=== PATIENT | male | born 1945 | race Caucasian/White ===

== ENCOUNTER 2019-04-24 21:26 | Inpatient (IN) | payer OTHER ==
[2019-04-24 22:49] LABS: BASO % 0.8 % (0-2.0); EOS % 0.3 % (0-4.5); HEMATOCRIT 37.3 % (35.4-49); HEMOGLOBIN 11.9 GM/dL (11.7-16.9); LYMPH % 9.8 % (8-40); MCH 26.4 pg (25.7-33.7); MCHC 31.9 g/dl (32.0-35.9); MEAN CELL VOLUME 82.7 fl (80-96); MEAN PLT VOLUME 9.5 fl (7.5-11.1); MONO % 9.1 % (3.8-10.2); PLATELET COUNT 205 K/MM3 (134-434); RBC 4.51 M/mm3 (4.00-5.60); RDW 14.1 % (11.9-15.9); WHITE BLOOD COUNT 11.4 K/mm3 (4.0-10.0)
--- NOTE | 2019-04-24 22:59 | PDOC ---
History of Present Illness - General Chief Complaint: Urinary Problem Stated Complaint: URINARY PROBLEM Time Seen by Provider: 04/24/19 22:14 - History of Present Illness Initial Comments: 04/24/19 22:55 73 yo M PMH UTIs, presenting with dysuria. Khmer speaking only. States that he has had dysuria, increased frequency, and incomplete voiding for the past week, as well as suprapubic abdominal pain. Went to [facility] 3 days ago and was discharged with cipro and ibuprofen 600mg, but states that his symptoms have not responded. Denies fevers/chills, DHALIWAL, N/V, CP, SOB, constipation/diarrhea. Endorses dysuria , frequency, incomplete voiding, and suprapubic abdominal pain. Past History - Past Medical History Allergies/Adverse Reactions: Allergies Allergy/AdvReac Type Severity Reaction Status Date / Time No Known Allergies Allergy Verified 04/24/19 21:59 COPD: No Other medical history: Pt denies - Psycho Social/Smoking Cessation Hx Smoking History: Never smoked Have you smoked in the past 12 months: No Information on smoking cessation initiated: No Hx Alcohol Use: No Drug/Substance Use Hx: No Review of Systems - Review of Systems Comments:: 04/24/19 22:57 GENERAL/CONSTITUTIONAL: No fever or chills. No weakness. HEAD, EYES, EARS, NOSE AND THROAT: No change in vision. No ear pain or discharge. No sore throat. CARDIOVASCULAR: No chest pain or shortness of breath. RESPIRATORY: No cough, wheezing, or hemoptysis. GASTROINTESTINAL: No nausea, vomiting, diarrhea or constipation. GENITOURINARY: Dysuria with frequency and incomplete voiding. MUSCULOSKELETAL: No joint or muscle swelling or pain. No neck or back pain. SKIN: No rash NEUROLOGIC: No headache, vertigo, loss of consciousness, or change in strength/ sensation. ENDOCRINE: No increased thirst. No abnormal weight change. HEMATOLOGIC/LYMPHATIC: No anemia, easy bleeding, or history of blood clots. ALLERGIC/IMMUNOLOGIC: No hives or skin allergy *Physical Exam - Vital Signs Last Vital Signs Temp Pulse Resp BP Pulse Ox 98.9 F 65 18 165/94 98 04/24/19 22:00 04/24/19 22:00 04/24/19 22:00 04/24/19 22:00 04/24/19 22:00 - Physical Exam 04/24/19 22:58 Gen: well-developed, well-nourished, NAD Neuro: AAOX4, CN II-XII intact, FTN intact, EOMI, PERRLA, 5/5 strength, SILT HEENT: atraumatic, normocephalic, dry mucous membranes Neck: trachea midline, supple CV: regular rate, regular rhythm, no murmurs, rubs, or gallops Pulm: CTA b/l, no wheezing Abd: soft, suprapubic fullness with ttp : uncircumcised penis, 1 mm aperture with significant phimosis and inability to retract foreskin MSK: full ROM, intact pulses Extr: no edema, no deformities Skin: warm, dry ED Treatment Course - LABORATORY CBC & Chemistry Diagram: 04/25/19 08:00 04/25/19 08:00 Medical Decision Making - Medical Decision Making 04/24/19 22:58 Concern for UTI, possible retention. - CBC, CMP - UA/UC - reassess 04/24/19 23:05 Bedside bladder scan with >1.2 L of urine post voiding. Will order Montgomery. 04/24/19 23:13 WBC 11.4. UA without UTI. 04/25/19 00:[address] Montgomery considering significantly small aperture and inability to retract foreskin. Will f/u urology drawer in stitch bonding machine recs. Possible admit to be seen by urology. 04/25/19 01:[address] Bonilla, asks that the patient be admitted and he will see the patient. Discharge - Discharge Information Problems reviewed: Yes Clinical Impression/Diagnosis: Urinary retention - Follow up/Referral - Patient Discharge Instructions - Post Discharge Activity
[2019-04-24 23:21] LABS: EPI CELLS 0.6 /HPF (0-5/HPF); HYALINE CASTS 4 /lpf (0-8); URINE APPEARANCE TURBID; URINE BACTERIA 0.2 /hpf (NEGATIVE); URINE BILIRUBIN NEGATIVE (NEGATIVE); URINE COLOR ORANGE; URINE GLUCOSE (UA) NEGATIVE (NEGATIVE); URINE KETONE NEGATIVE (NEGATIVE); URINE LEUK ESTERASE NEGATIVE (NEGATIVE); URINE NITRITE NEGATIVE (NEGATIVE); URINE PROTEIN TRACE (NEGATIVE); URINE UROBILINOGEN 0.2 mg/dL (0.2-1.0); URINE WBC 0 /hpf (0-5)
[2019-04-24 23:23] LABS: ALBUMIN 3.5 g/dl (3.4-5.0); BILIRUBIN,TOTAL 0.5 mg/dL (0.2-1); BLOOD UREA NITROGEN 19.8 mg/dL (7-18); CALCIUM 8.6 mg/dL (8.5-10.1); CREATININE 1.4 mg/dL (0.55-1.3); POTASSIUM 3.9 mmol/L (3.5-5.1); TOT PROT 7.8 g/dl (6.4-8.2)
[2019-04-24 23:40] LABS: URINE RBC 50-60 /hpf (0-4)
[2019-04-24 23:41] LABS: YEAST NONE SEEN (NEGATIVE)
--- NOTE | 2019-04-24 23:44 | PDOC ---
Documentation entered by Karsten Mcnair SCRIBE, acting as scribe for Micky Obrien MD. Micky Obrien MD: This documentation has been prepared by the Xu barahona Daniel, SCRIBE, under my direction and personally reviewed by me in its entirety. I confirm that the documentation accurately reflects all work, treatment, procedures, and medical decision making performed by me. Attending Attestation - Resident Resident Name: NoyolaHailemarya - ED Attending Attestation I have performed the following: I have examined & evaluated the patient, The case was reviewed & discussed with the resident, I agree w/resident's findings & plan, Exceptions are as noted - HPI HPI: 04/24/19 22:48 The patient is a 73 year old male with a past medical history of here today for evaluation of urinary retention. The patient reports that he went to [facility] 3 days ago and was prescribed ciprofloxacin. He states that his symptoms have continued since then and described them as burning with urination, urinary frequency, and urinary retention. Patient denies headache, lightheadedness. Denies fever, chills. Denies chest pain, shortness of breath. Denies nausea, vomiting, diarrhea, abdominal pain. Allergies: NKA - Physicial Exam PE: 04/24/19 23:44 Vitals: Triage Vital signs reviewed General Appearance: No acute distress, well nourished well developed, Head: Atraumatic, Cardiac: Regular rate and rhythym, no murmurs, no rubs, no gallops, Lungs: Clear to auscultation bilateral, good air movement bilaterally, Abdomen: Soft, distended suprapubic discomfort r Psych: Normal mood, normal affect - Medical Decision Making 04/24/19 23:44 73 years old with recent questionable UTI now with urinary retention suprapubic discomfort large postvoid residual Will check labs Montgomery catheter urinalysis observe and reassess. 04/25/19 01:41 Patient with very significant phimosis unable to pass catheter not in extremis will admit to hospitalist overnight urology has been consulted will see patient in the morning
--- NOTE | 2019-04-25 02:01 | PN ---
Teaching Attending Note Name of Resident: Brandyn Jesus ATTENDING PHYSICIAN STATEMENT I saw and evaluated the patient. I reviewed the resident's note and discussed the case with the resident. I agree with the resident's findings and plan as documented. SUBJECTIVE: Patient is 73 year old Greek speaking man with a PMH of UTIs, presenting with dysuria. States that he has had dysuria, increased frequency, and incomplete voiding for the past week, as well as suprapubic abdominal pain. Went to [facility] 3 days ago and was discharged with Cipro and Ibuprofen 600m g , but states that his symptoms have not responded. Denies fevers, chills, headache, nausea, vomiting, chest pain, CP, SOB, constipation or diarrhea. Has dysuria, frequency, incomplete voiding, and suprapubic abdominal pain. No recent travels. Denies alcohol, tobacco or illicit drug use. In the ER noted to have a post void residual of 1.2 liters. Also has uncircumcised penis with 1 mm aperture with significant phimosis and inability to retract foreskin and pass crain. Urology was consulted. OBJECTIVE: Alert Vital Signs Period Temp Pulse Resp BP Sys/Fniney Pulse Ox Last 24 Hr 98.9 F 65 18 165/94 98 HEENT: No Jaundice, eye redness or discharge, PERRLA, EOMI. Normocephalic, atraumatic. External ears are normal and hearing is grossly intact. No nasal discharge. Neck: Supple, nontender. No palpable adenopathy or thyromegaly. No JVD Chest: Good effort. Clear to auscultation and percussion. Heart: Regular. No S3, rub or murmur Abdomen: Distended suprapubic area with tenderness, soft, nontender and no HSM. No rebound or guarding. Normal bowel sounds. Ext: Peripheral pulses intact. No leg edema. Uncircumcised penis with significant phimosis. Skin: Warm and dry. No petechiae, rash or ecchymosis. Neuro: Alert. Oriented x3. CN 2-12 grossly intact. Sensation grossly intact in all four extremities and DTR are symmetric. Psych: Appropriate mood and affect. Good insight. Abnormal Lab Results 04/24/19 04/24/19 04/24/19 22:40 22:40 23:05 WBC 11.4 H MCHC 31.9 L Absolute Neuts (auto) 9.2 H Chloride 108 H BUN 19.8 H Creatinine 1.4 H Random Glucose 122 H Urine Blood 3+ H ASSESSMENT AND PLAN: 1. Urinary retention - Unable to pass crain. Urology consulted. Will strive to get records form [facility] during the day but will treat with IV Rocephin for UTI and give Flomax stat. Will apply topical steroid cream to the foreskin. Get HbAic. Will monitor BP closely since he may have undiagnosed hypertension. Will continue comprehensive care for all of patients comorbid conditions. 2. JAN - Likely partly due to urinary outlet obstruction. Will get kidney sonogram, CPK, PTH and phosphate levels. Consult nephrology and avoid nephrotoxic agents such as NSAIDS, aminoglycosides, contrast dyes and certain Alternative medicine products. 3. DVT prophylaxis - SCD since he may need a urologic procedure. 4. Advance directives - Full code
--- NOTE | 2019-04-25 03:57 | HP ---
CHIEF COMPLAINT: dysuria, urinary retention PCP: N/A HISTORY OF PRESENT ILLNESS: Patient is a 73 year old male who denies known medical history, presents with complaint of dysuria. States symptoms have been ongoing for the past week. He has noted increased urinary frequency, with difficulty passing urinary stream and sensation of incomplete voiding. He denies prior episodes of similar symptoms. Patient states he went to [facility] three days ago where he was reportedly sent home with Ciprofloxacin, and Ibuprofen which has not been palliative. Patient admits one episode of hematuria. Denies subjective fevers, chills, shortness of breath, chest pain, palpitations, abdominal pain, nausea, vomiting, diarrhea, constipation. ER course was notable for: (1) Bladder scan > 1200cc urine (2) (3) Recent Travel: denies PAST MEDICAL HISTORY: denies PAST SURGICAL HISTORY: lower extremity varicose vein surgery Social History: Patient from [facility]. Independent in activities daily living. Lives in apartment with sister. Smoking: Denies smoking cigarettes Alcohol: Denies alcohol consumption Drugs: Denies illicit drug use. Allergies No Known Allergies Allergy (Verified 04/24/19 21:59) HOME MEDICATIONS: REVIEW OF SYSTEMS CONSTITUTIONAL: Absent: fever, chills, diaphoresis, generalized weakness, malaise, loss of appetite, weight change HEENT: Absent: rhinorrhea, nasal congestion, throat pain, throat swelling, difficulty swallowing, mouth swelling, ear pain, eye pain, visual changes CARDIOVASCULAR: Absent: chest pain, syncope, palpitations, irregular heart rate, lightheadedness , peripheral edema RESPIRATORY: Absent: cough, shortness of breath, dyspnea with exertion, orthopnea, wheezing, stridor, hemoptysis GASTROINTESTINAL: Absent: abdominal pain, abdominal distension, nausea, vomiting, diarrhea, constipation, melena, hematochezia GENITOURINARY: Admits: dysuria, frequency, urgency, hesitancy, hematuria, genital pain MUSCULOSKELETAL: Absent: myalgia, arthralgia, joint swelling, back pain, neck pain SKIN: Absent: rash, itching, pallor HEMATOLOGIC/IMMUNOLOGIC: Absent: easy bleeding, easy bruising, lymphadenopathy, frequent infections ENDOCRINE: Absent: unexplained weight gain, unexplained weight loss, heat intolerance, cold intolerance NEUROLOGIC: Absent: headache, focal weakness or paresthesias, dizziness, unsteady gait, seizure, mental status changes, bladder or bowel incontinence PSYCHIATRIC: Absent: anxiety, depression, suicidal or homicidal ideation, hallucinations. PHYSICAL EXAMINATION Vital Signs - 24 hr 04/24/19 22:00 Temperature 98.9 F Pulse Rate 65 Respiratory 18 Rate Blood Pressure 165/94 O2 Sat by Pulse 98 Oximetry (%) GENERAL: Awake, alert, and fully oriented, in no acute distress. HEAD: Normal with no signs of trauma. EYES: Pupils equal, round and reactive to light, extraocular movements intact, sclera anicteric, conjunctiva clear. No lid lag. EARS, NOSE, THROAT: Ears normal, nares patent, oropharynx clear without exudates. Moist mucous membranes. NECK: Normal range of motion, supple without lymphadenopathy, JVD, or masses. LUNGS: Breath sounds equal, clear to auscultation bilaterally. No wheezes, and no crackles. No accessory muscle use. HEART: Regular rate and rhythm, normal S1 and S2 without murmur, rub or gallop. ABDOMEN: Soft, distended bladder palpable. Suprapubic tenderness to palpation. Normoactive bowel sounds, no guarding, no rebound tenderness. GENITOURINARY: Uncircumcised penis; unable to retract foreskin. Negative lesions , erythema noted. MUSCULOSKELETAL: Normal range of motion at all joints. No bony deformities or tenderness. Negative CVA tenderness. UPPER EXTREMITIES: 2+ pulses, warm, well-perfused. LOWER EXTREMITIES: 2+ pulses, warm, well-perfused. No calf tenderness. No peripheral edema. NEUROLOGICAL: Cranial nerves II-XII intact. Normal speech. Normal gait. PSYCHIATRIC: Cooperative. Good eye contact. Appropriate mood and affect. SKIN: Warm, dry, normal turgor, no rashes or lesions noted, normal capillary refill. Laboratory Results - last 24 hr 04/24/19 04/24/19 04/24/19 22:40 22:40 23:05 WBC 11.4 H RBC 4.51 Hgb 11.9 Hct 37.3 MCV 82.7 MCH 26.4 MCHC 31.9 L RDW 14.1 Plt Count 205 MPV 9.5 Absolute Neuts (auto) 9.2 H Neutrophils % 80.0 Lymphocytes % 9.8 Monocytes % 9.1 Eosinophils % 0.3 Basophils % 0.8 Nucleated RBC % 0 Sodium 141 Potassium 3.9 Chloride 108 H Carbon Dioxide 22 Anion Gap 11 BUN 19.8 H Creatinine 1.4 H Est GFR (CKD-EPI)AfAm 57.36 Est GFR (CKD-EPI)NonAf 49.49 Random Glucose 122 H Calcium 8.6 Total Bilirubin 0.5 AST 18 ALT 18 Alkaline Phosphatase 57 Total Protein 7.8 Albumin 3.5 Urine Color Jennings Urine Appearance Turbid Urine pH 5.0 Ur Specific Schuyler 1.011 Urine Protein Trace Urine Glucose (UA) Negative Urine Ketones Negative Urine Blood 3+ H Urine Nitrite Negative Urine Bilirubin Negative Urine Urobilinogen 0.2 Ur Leukocyte Esterase Negative Urine WBC (Auto) 0 Urine RBC (Auto) 50-60 Urine Casts (Auto) 4 U Epithel Cells (Auto) 0.6 Urine Bacteria (Auto) 0.2 Urine Yeast (Auto) None seen ASSESSMENT/PLAN: Patient is a 73 year old male who denies known medical history, presents with complaint of dysuria Urinary retention -Urinary retention likely secondary to phimosis. However, cannot exclude prostatic hyperplasia as obstructive etiology. -Flomax 0.8mg PO STAT -Will administer topical hydrocortisone cream 1% to foreskin to allow for skin loosening and potentially alleviate urinary retention. -ED staff were not able to place crain catheter. Urology consulted in ED (Dr. Lyons); will see patient in morning. Acute complicated UTI -Will initiate Ceftriaxone 1000mg IV daily. -Hold off on IV fluids as patient is experiencing difficulty passing urine, and retaining significant urine. -Follow urine cultures. -Will attempt to contact [place] to follow urine culture results from their encounter Acute kidney injury -Likely secondary to obstructive pathology. Follow CPK, phosphate, PTH. -Renal/ Bladder ultrasound to evaluate for hydronephrosis -Nephrology consult (Dr. Odell). -Follow BMP FEN -No IV fluids indicated -Follow BMP -Regular diet Prophylaxis -SCDs bilateral lower extremities. Holding chemical anticoagulation pending Urology evaluation Disposition -Admit to medical surgical floor. Visit type - Emergency Visit Emergency Visit: Yes ED Registration Date: 04/25/19 Care time: The patient presented to the Emergency Department on the above date and was hospitalized for further evaluation of their emergent condition. - New Patient This patient is new to me today: Yes Date on this admission: 04/25/19 - Critical Care Critical Care patient: No ATTENDING PHYSICIAN STATEMENT I saw and evaluated the patient. I reviewed the resident's note and discussed the case with the resident. I agree with the resident's findings and plan as documented. SUBJECTIVE: OBJECTIVE: ASSESSMENT AND PLAN:
[2019-04-25] MEDS ORDERED: TAMSULOSIN HCL 0.4 MG CAP PO ONE (04:10)
[2019-04-25] MEDS ORDERED: HYDROCORTISONE 1% TOPICAL OINT 30 GM TUBE TP ONE (04:20)
[2019-04-25] MEDS ORDERED: CEFTRIAXONE 1 GM/50 ML BAG ONE (04:47)
[2019-04-25] MEDS: CEFTRIAXONE 1 GM in DEXTROSE 5%-WATER - 50 ML IVPB SCH ×2 (04:59→09:37)
[2019-04-25] MEDS: ACETAMINOPHEN 325 MG TABLET (FP) PO PRN (06:03)
[2019-04-25 07:53] VITALS: BMI 27.3
[2019-04-25 09:12] LABS: HEMATOCRIT 36.9 % (35.4-49); HEMOGLOBIN 11.8 GM/dL (11.7-16.9); MCH 26.6 pg (25.7-33.7); MCHC 32.1 g/dl (32.0-35.9); MEAN CELL VOLUME 82.9 fl (80-96); MEAN PLT VOLUME 10.2 fl (7.5-11.1); PLATELET COUNT 203 K/MM3 (134-434); RBC 4.45 M/mm3 (4.00-5.60); WHITE BLOOD COUNT 11.1 K/mm3 (4.0-10.0)
[2019-04-25] MEDS ORDERED: DEXTROSE 5%-WATER - 50 ML IVPB ONE (09:33)
[2019-04-25] MEDS ORDERED: cefTRIAXone SODIUM 1 GM VIAL ONE (09:33)
[2019-04-25 09:35] LABS: INR 1.26 (0.83-1.09); PROTHROMBIN TIME (PATIENT) 14.9 SEC (9.7-13.0)
[2019-04-25 09:38] LABS: ACTIVATED PTT 29.7 SECONDS (25.2-36.5)
[2019-04-25 09:42] LABS: ALBUMIN 3.3 g/dl (3.4-5.0); BILIRUBIN,TOTAL 0.6 mg/dL (0.2-1); BLOOD UREA NITROGEN 16.6 mg/dL (7-18); CALCIUM 8.5 mg/dL (8.5-10.1); CREATININE 1.1 mg/dL (0.55-1.3); MAGNESIUM 2.4 mg/dL (1.8-2.4); PHOSPHOROUS 4.5 mg/dL (2.5-4.9); POTASSIUM 4.2 mmol/L (3.5-5.1); TOT PROT 7.7 g/dl (6.4-8.2)
[2019-04-25] MEDS ORDERED: FLU VACCINE QUAD 60 MCG/0.5 ML (MDV 19-20) IM ONE (10:00)
[2019-04-25] MEDS ORDERED: PNEUMOC 13-VAL CONJ-DIP CRM/PF 0.5 ML DISP.SYRIN IM ONE (10:00)
--- NOTE | 2019-04-25 11:16 | CONSULT ---
Consult - text type - Consultation Consultation Note: Renal consult for JAN Coverage for Dr. Odell This is a 73 year old gentleman with no significant medical history who presented from home with abdominal pain and found to have bladder outlet obstruction with JAN. s/p recent admission to [facility] for UTI. Denies any history of CKD or kidney stones. Denies any flank pain. No NSAID use. Montgomery inserted this am with 1.7L output. No N/v/d, cp, sob. PMhx: as above Allergies: NKDA Family Hx: NC social hx: No T/A/D ROS: as per HPI, all other pertinent ros negative Vital Signs Temperature 98.6 F 04/25/19 05:00 Pulse Rate 64 04/25/19 05:00 Respiratory Rate 18 04/25/19 05:00 Blood Pressure 161/69 04/25/19 05:00 O2 Sat by Pulse Oximetry (%) 99 04/25/19 05:00 Intake & Output 04/22/19 04/23/19 04/24/19 04/25/19 23:59 23:59 23:59 23:59 Intake Total 200 Balance 200 Weight 67.132 kg 67.903 kg NAD awake and alert neck supple RRR CTA soft NT/ND no bladder distension no LE edema CBC, BMP 04/25/19 08:00 04/25/19 08:00 Current Medications Acetaminophen (Tylenol -) 650 mg PO Q6H PRN PRN Reason: PAIN LEVEL 6-10 Last Admin: 04/25/19 06:03 Dose: 650 mg Ceftriaxone Sodium 1 gm/ (Dextrose) 50 mls @ 100 mls/hr IVPB DAILY [facility]; Protocol Last Admin: 04/25/19 09:37 Dose: 100 mls/hr Sodium Chloride (1/2 Normal Saline) 1,000 mls @ 100 mls/hr IV ASDIR AMBROCIO 73 year old gentleman with no significant medical history who presented from home with abdominal pain and found to have bladder outlet obstruction with JAN. 1. JAN secondary to bladder outlet obstruction 2. Hydronephrosis 3. Hypernatremia 4. Bladder mass 5. Recent UTI Renal function now improved to normal. Urology consult for bladder outlet obstruction and bladder mass seen on US Start hypotonic saline to prevent post obstructive diuresis induced volume depletion trend electrolytes and renal function daily Artem Kendall DO
--- NOTE | 2019-04-25 13:20 | CONS ---
DATE OF CONSULTATION: 04/25/2019 The patient is a 73-year-old [place] gentleman who presented to the emergency room with a distended bladder, difficulty voiding, and a history that he had been seen at [facility] 3 days earlier and placed on Cipro, without any resolution of his symptoms. The patient is speaking. History was obtained from a relative with the patient there. Patient reports some difficulty passing his urine but had never seen a urologist previously. Three days earlier, he presented to [facility] and complained of dribbling of urination, burning, unclear what imaging, if any, was done, but the patient was discharged on Cipro, which did not resolve the problem. The patient presented to the emergency room, where approximately 1100 mL was noted on bladder scan. Initially it was felt that a Montgomery could not be passed because of the patient's tight phimosis; however, Montgomery subsequently was passed and drained approximately 1200 mL of urine, according to the notes. Imaging has also showed that the patient may have a mass in the bladder. There is no history, however, of any gross hematuria. UA on admission did show red cells but this was obtained, it seems, from the passage of the catheter and is somewhat suspect in terms of its reliability, therefore. Current urologic exam that did reveal a tight phimosis. A Montgomery was in place draining slightly turbid yellow urine. Rectal exam is significant for the presence of an enlarged, irregular prostate, nodular, and suspicious for prostatic carcinoma. In summary, what we have is a 73-year-old, without prior history, and no other reported medical problems, presenting with urinary retention and an exam suggesting both a bladder mass as well as possibly prostatic carcinoma. The patient will need to have cystoscopy performed. At the time, if done with anesthesia, he should have a circumcision. In addition, I would place the patient on tamsulosin. I am not really sure exactly why it was discontinued, but he should be maintained on tamsulosin with the thought that he could have a trial of voiding in 3 days or 4 days, and if he is unable to void at the time that the cystoscopy is done, he possibly could also undergo a TURP. MD CHANCE BOWEN/[id number]
--- NOTE | 2019-04-25 16:59 | EKG ---
Test Reason : Blood Pressure : / mmHG Vent. Rate : 065 BPM Atrial Rate : 065 BPM P-R Int : 188 ms QRS Dur : 094 ms QT Int : 386 ms P-R-T Axes : 052 043 035 degrees QTc Int : 401 ms SINUS RHYTHM WITH OCCASIONAL PREMATURE VENTRICULAR COMPLEXES OTHERWISE NORMAL ECG NO PREVIOUS ECGS AVAILABLE Confirmed by ELIO CHAVEZ MD ([id number]) on 04/25/2019 4:58:45 PM Referred By: Confirmed By:ELIO CAHVEZ MD
--- NOTE | 2019-04-25 19:26 | PN ---
Physical Exam: 73 Turkmen speaking M h/o recurrent UTIs, presenting with dysuria and lower abdominal pain. Admitted for complicated UTI secondary to acute urinary retention 2/2 BPH and ?bladder mass. On examination patient complaining of writhing pain in lower abdomen, with a distended bladder and urinary retention. On my assessment, patient required urinary drainage so 16Fr crain catheter placed for presumed urinary retention. At approximately 9:45AM on 04/25/2019 patient was draped and prepped with sterile technique. 16Fr/10ml crain catheter inserted x1 attempt, return of 1700mL clear, yellow urine flowing, connected to crain bag to gravity, pt states discomfort with initial insertion, but denies any pain/discomfort at this time. EBL: 0cc. Patient tolerated procedure well. HEENT: No Jaundice, eye redness or discharge, PERRLA, EOMI. Normocephalic, atraumatic. External ears are normal and hearing is grossly intact. No nasal discharge. Neck: Supple, nontender. No palpable adenopathy or thyromegaly. No JVD Chest: Good effort. Clear to auscultation and percussion. Heart: Regular. No S3, rub or murmur Abdomen: Distended suprapubic area with tenderness, soft, non-tender and no HSM. No rebound or guarding. Normal bowel sounds. Ext: Peripheral pulses intact. No leg edema. Uncircumcised penis with significant phimosis and small opening. Skin: Warm and dry. No petechiae, rash or ecchymosis. Neuro: Alert. Oriented x3. CN 2-12 grossly intact. Sensation grossly intact in all four extremities and DTR are symmetric. Psych: Appropriate mood and affect. Good insight. Vital Signs - 24 hr 04/24/19 04/25/19 04/25/19 22:00 02:15 05:00 Temperature 98.9 F 98.6 F Pulse Rate 65 64 Pulse Rate [ 70 Left Radial] Respiratory 18 18 18 Rate Blood Pressure 165/94 161/69 Blood Pressure 159/86 [Left Arm] O2 Sat by Pulse 98 98 99 Oximetry (%) 04/25/19 04/25/19 04/25/19 09:00 09:52 15:00 Temperature 98.3 F 98.3 F Pulse Rate 58 L 72 Pulse Rate [ Left Radial] Respiratory 18 18 18 Rate Blood Pressure 155/69 132/73 Blood Pressure [Left Arm] O2 Sat by Pulse 99 Oximetry (%) 04/25/19 18:22 Temperature 99.1 F Pulse Rate 67 Pulse Rate [ Left Radial] Respiratory 19 Rate Blood Pressure 123/71 Blood Pressure [Left Arm] O2 Sat by Pulse Oximetry (%) Laboratory Results - last 24 hr 04/24/19 04/24/19 04/24/19 22:40 22:40 23:05 WBC 11.4 H RBC 4.51 Hgb 11.9 Hct 37.3 MCV 82.7 MCH 26.4 MCHC 31.9 L RDW 14.1 Plt Count 205 MPV 9.5 Absolute Neuts (auto) 9.2 H Neutrophils % 80.0 Lymphocytes % 9.8 Monocytes % 9.1 Eosinophils % 0.3 Basophils % 0.8 Nucleated RBC % 0 PT with INR INR PTT (Actin FS) Sodium 141 Potassium 3.9 Chloride 108 H Carbon Dioxide 22 Anion Gap 11 BUN 19.8 H Creatinine 1.4 H Est GFR (CKD-EPI)AfAm 57.36 Est GFR (CKD-EPI)NonAf 49.49 Random Glucose 122 H Hemoglobin A1c % Calcium 8.6 Phosphorus Magnesium Total Bilirubin 0.5 AST 18 ALT 18 Alkaline Phosphatase 57 Creatine Kinase Total Protein 7.8 Albumin 3.5 Urine Color [place] Urine Appearance Turbid Urine pH 5.0 Ur Specific [place] 1.011 Urine Protein Trace Urine Glucose (UA) Negative Urine Ketones Negative Urine Blood 3+ H Urine Nitrite Negative Urine Bilirubin Negative Urine Urobilinogen 0.2 Ur Leukocyte Esterase Negative Urine WBC (Auto) 0 Urine RBC (Auto) 50-60 Urine Casts (Auto) 4 U Epithel Cells (Auto) 0.6 Urine Bacteria (Auto) 0.2 Urine Yeast (Auto) None seen Blood Type Antibody Screen 04/25/19 04/25/19 04/25/19 08:00 08:00 08:00 WBC 11.1 H RBC 4.45 Hgb 11.8 Hct 36.9 MCV 82.9 MCH 26.6 MCHC 32.1 RDW 14.0 Plt Count 203 MPV 10.2 Absolute Neuts (auto) Neutrophils % Lymphocytes % Monocytes % Eosinophils % Basophils % Nucleated RBC % PT with INR 14.90 H INR 1.26 H PTT (Actin FS) 29.7 Sodium 148 H Potassium 4.2 Chloride 113 H Carbon Dioxide 26 Anion Gap 9 BUN 16.6 Creatinine 1.1 Est GFR (CKD-EPI)AfAm 76.78 Est GFR (CKD-EPI)NonAf 66.24 Random Glucose 105 Hemoglobin A1c % Calcium 8.5 Phosphorus 4.5 Magnesium 2.4 Total Bilirubin 0.6 AST 14 L ALT 17 Alkaline Phosphatase 54 Creatine Kinase Total Protein 7.7 Albumin 3.3 L Urine Color Urine Appearance Urine pH Ur Specific [place] Urine Protein Urine Glucose (UA) Urine Ketones Urine Blood Urine Nitrite Urine Bilirubin Urine Urobilinogen Ur Leukocyte Esterase Urine WBC (Auto) Urine RBC (Auto) Urine Casts (Auto) U Epithel Cells (Auto) Urine Bacteria (Auto) Urine Yeast (Auto) Blood Type Antibody Screen 04/25/19 04/25/19 04/25/19 08:00 08:00 08:00 WBC RBC Hgb Hct MCV MCH MCHC RDW Plt Count MPV Absolute Neuts (auto) Neutrophils % Lymphocytes % Monocytes % Eosinophils % Basophils % Nucleated RBC % PT with INR INR PTT (Actin FS) Sodium Potassium Chloride Carbon Dioxide Anion Gap BUN Creatinine Est GFR (CKD-EPI)AfAm Est GFR (CKD-EPI)NonAf Random Glucose Hemoglobin A1c % 5.6 Calcium Phosphorus Magnesium Total Bilirubin AST ALT Alkaline Phosphatase Creatine Kinase 45 Total Protein Albumin Urine Color Urine Appearance Urine pH Ur Specific [place] Urine Protein Urine Glucose (UA) Urine Ketones Urine Blood Urine Nitrite Urine Bilirubin Urine Urobilinogen Ur Leukocyte Esterase Urine WBC (Auto) Urine RBC (Auto) Urine Casts (Auto) U Epithel Cells (Auto) Urine Bacteria (Auto) Urine Yeast (Auto) Blood Type O POSITIVE Antibody Screen Negative 04/25/19 11:40 WBC RBC Hgb Hct MCV MCH MCHC RDW Plt Count MPV Absolute Neuts (auto) Neutrophils % Lymphocytes % Monocytes % Eosinophils % Basophils % Nucleated RBC % PT with INR INR PTT (Actin FS) Sodium Potassium Chloride Carbon Dioxide Anion Gap BUN Creatinine Est GFR (CKD-EPI)AfAm Est GFR (CKD-EPI)NonAf Random Glucose Hemoglobin A1c % Calcium Phosphorus Magnesium Total Bilirubin AST ALT Alkaline Phosphatase Creatine Kinase Total Protein Albumin Urine Color Urine Appearance Urine pH Ur Specific [place] Urine Protein Urine Glucose (UA) Urine Ketones Urine Blood Urine Nitrite Urine Bilirubin Urine Urobilinogen Ur Leukocyte Esterase Urine WBC (Auto) Urine RBC (Auto) Urine Casts (Auto) U Epithel Cells (Auto) Urine Bacteria (Auto) Urine Yeast (Auto) Blood Type O POSITIVE Antibody Screen Current Medications Generic Name Dose Route Start Last Admin Trade Name Freq PRN Reason Stop Dose Admin Acetaminophen 650 mg 04/25/19 05:45 04/25/19 06:03 Tylenol - PO 650 mg Q6H PRN Administration PAIN LEVEL 6-10 Enoxaparin Sodium 40 mg 04/25/19 19:30 Lovenox - SQ DAILY ON LICENSE OF [facility] Ceftriaxone Sodium 1 gm/ 50 mls @ 100 mls/hr 04/25/19 04:15 04/25/19 09:37 Dextrose IVPB 100 mls/hr DAILY [facility] Administration Protocol Sodium Chloride 1,000 mls @ 100 mls/hr 04/25/19 11:15 1/2 Normal Saline IV ASDIR [facility] Tamsulosin HCl 0.4 mg 04/25/19 20:30 Flomax - PO Q12H [facility] A/P: 73 M no significant PMHx, presents with complicated UTI 2/2 BPH and acute urinary retention. Patient underwent renal/bladder sono which revealed ?bladder mass. Crain placed which drained 1700mL of urine. Complicated UTI Cont. Ceftriaxone 1gm daily, IVF, follow urine cx Flomax 0.4mg BID (for 24hour coverage), crain to gravity maintenance Tylenol PRN for pain and fever Urology consult: Dr. Bonilla BPH w/ LUTS Cont. Flomax 0.4mg BID Crain to gravity for acute urinary retention Urology consult: Dr. Bonilla Bladder mass on imaging No remote history of smoking or risk factors Monitor CBC and urine output Urology consult: Dr. Bonilla DVT ppx: Lovenox SC FEN: IVF, chem daily, regular diet Visit type - Emergency Visit Emergency Visit: Yes ED Registration Date: 04/25/19 Care time: The patient presented to the Emergency Department on the above date and was hospitalized for further evaluation of their emergent condition. - New Patient This patient is new to me today: Yes Date on this admission: 04/25/19 - Critical Care Critical Care patient: No - Discharge Referral Referred to [facility] Med P.C.: No
[2019-04-25] MEDS: SODIUM CHLORIDE 0.45% 1,000 ML IV SCH (20:23)
[2019-04-25] MEDS: ENOXAPARIN NA (PORCINE) 40 MG/0.4 ML DISP.SYRIN SQ SCH (20:24)
[2019-04-25] MEDS: TAMSULOSIN HCL 0.4 MG CAP PO SCH (20:24)
[2019-04-25] MEDS ORDERED: POLYETHYLENE GLYCOL 3350 119 GM BTL PO ONE (22:24)
[2019-04-26 07:26] LABS: BASO % 0.6 % (0-2.0); EOS % 1.6 % (0-4.5); HEMATOCRIT 34.5 % (35.4-49); HEMOGLOBIN 11.2 GM/dL (11.7-16.9); LYMPH % 26.6 % (8-40); MCH 26.7 pg (25.7-33.7); MCHC 32.3 g/dl (32.0-35.9); MEAN CELL VOLUME 82.4 fl (80-96); MEAN PLT VOLUME 9.6 fl (7.5-11.1); MONO % 10.5 % (3.8-10.2); NEUT % 60.7 % (42.8-82.8); PLATELET COUNT 189 K/MM3 (134-434); RBC 4.18 M/mm3 (4.00-5.60); RDW 14.2 % (11.9-15.9); WHITE BLOOD COUNT 8.9 K/mm3 (4.0-10.0)
[2019-04-26 07:56] LABS: ALBUMIN 2.8 g/dl (3.4-5.0); BILIRUBIN,TOTAL 0.8 mg/dL (0.2-1); BLOOD UREA NITROGEN 13.3 mg/dL (7-18); CALCIUM 8.1 mg/dL (8.5-10.1); CREATININE 0.9 mg/dL (0.55-1.3); MAGNESIUM 2.3 mg/dL (1.8-2.4); PHOSPHOROUS 3.8 mg/dL (2.5-4.9); POTASSIUM 3.5 mmol/L (3.5-5.1); TOT PROT 6.6 g/dl (6.4-8.2)
[2019-04-26] MEDS ORDERED: TAMSULOSIN HCL 0.4 MG CAP PO SCH (08:30)
[2019-04-26] MEDS ORDERED: DEXTROSE 5%-WATER - 50 ML IVPB ONE (10:21)
[2019-04-26] MEDS ORDERED: cefTRIAXone SODIUM 1 GM VIAL ONE (10:21)
[2019-04-26] MEDS: ENOXAPARIN NA (PORCINE) 40 MG/0.4 ML DISP.SYRIN SQ SCH (10:58)
[2019-04-26] MEDS: TAMSULOSIN HCL 0.4 MG CAP PO SCH ×2 (10:58→21:17)
[2019-04-26] MEDS: SODIUM CHLORIDE 0.45% 1,000 ML IV SCH ×2 (11:36→21:17)
[2019-04-26] MEDS: CEFTRIAXONE 1 GM in DEXTROSE 5%-WATER - 50 ML IVPB SCH (11:36)
--- NOTE | 2019-04-26 12:57 | PN ---
Progress Note, Physician History of Present Illness: Pt seen and examined at bedside. He is awake and alert. He has a crain in place and it is draining. - Current Medication List Current Medications: Active Medications Acetaminophen (Tylenol -) 650 mg PO Q6H PRN PRN Reason: PAIN LEVEL 6-10 Last Admin: 04/25/19 06:03 Dose: 650 mg Enoxaparin Sodium (Lovenox -) 40 mg SQ DAILY [facility] Last Admin: 04/26/19 10:58 Dose: 40 mg Ceftriaxone Sodium 1 gm/ (Dextrose) 50 mls @ 100 mls/hr IVPB DAILY [facility]; Protocol Last Admin: 04/26/19 11:36 Dose: 100 mls/hr Sodium Chloride (1/2 Normal Saline) 1,000 mls @ 100 mls/hr IV ASDIR [facility] Last Admin: 04/26/19 11:36 Dose: 100 mls/hr Tamsulosin HCl (Flomax -) 0.4 mg PO Q12H [facility] Last Admin: 04/26/19 10:58 Dose: 0.4 mg - Objective Vital Signs: Vital Signs Temperature 99.1 F 04/26/19 06:00 Pulse Rate 60 04/26/19 06:00 Respiratory Rate 18 04/26/19 06:00 Blood Pressure 144/80 04/26/19 06:00 O2 Sat by Pulse Oximetry (%) 99 04/25/19 21:00 Constitutional: Yes: Calm Eyes: Yes: Conjunctiva Clear HENT: Yes: Atraumatic Neck: Yes: Supple Cardiovascular: Yes: S1, S2 Respiratory: Yes: CTA Bilaterally Gastrointestinal: Yes: Soft Genitourinary: Yes: Crain Present Musculoskeletal: Yes: WNL Edema: No Neurological: Yes: Oriented Psychiatric: Yes: Oriented Labs: CBC, BMP 04/26/19 06:55 04/26/19 06:55 INR, PTT INR 1.26 (0.83-1.09) H 04/25/19 08:00 Assessment/Plan Current Medications Generic Name Dose Route Start Last Admin Trade Name Freq PRN Reason Stop Dose Admin Acetaminophen 650 mg 04/25/19 05:45 04/25/19 06:03 Tylenol - PO 650 mg Q6H PRN Administration PAIN LEVEL 6-10 Enoxaparin Sodium 40 mg 04/25/19 19:30 04/26/19 10:58 Lovenox - SQ 40 mg DAILY [facility] Administration Ceftriaxone Sodium 1 gm/ 50 mls @ 100 mls/hr 04/25/19 04:15 04/26/19 11:36 Dextrose IVPB 100 mls/hr DAILY [facility] Administration Protocol Sodium Chloride 1,000 mls @ 100 mls/hr 04/25/19 11:15 04/26/19 11:36 1/2 Normal Saline IV 100 mls/hr ASDIR [facility] Administration Tamsulosin HCl 0.4 mg 04/25/19 20:30 04/26/19 10:58 Flomax - PO 0.4 mg Q12H [facility] Administration 1. JAN secondary to bladder outlet obstruction 2. Hydronephrosis 3. Hypernatremia 4. Bladder mass 5. Recent UTI Plan - can decrease rate of fluids - repeat labs stella - give dose of potassium - urology eval
[2019-04-26] MEDS ORDERED: POTASSIUM CHLORIDE TABS 20 MEQ TABLET.ER (FP) PO ONE (13:30)
[2019-04-26] MEDS: POLYETHYLENE GLYCOL 3350 119 GM BTL PO SCH (15:06)
--- NOTE | 2019-04-26 15:08 | PN ---
Progress Note (short form) - Note Progress Note: Hospitalist Medicine Resting in bed. No complaint. No dysuria. +crain d/w uro, for TOV on 04/28 and will need to call w/ result Vitals 04/26/19 06:00 Temperature 99.1 F Pulse Rate 60 Respiratory 18 Rate Blood Pressure 144/80 Physical Exam general: resting in bed, in NAD heent: NCAT, PERRLA neck: supple cardio: S1, S2 RRR. no r/m/g pulm: CTA B/l. 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 +crain Laboratory Tests 04/24/19 04/25/19 04/26/19 23:05 08:00 06:55 WBC RBC Hgb Hct Plt Count Sodium 139 Potassium 3.5 Chloride 107 Carbon Dioxide 29 Anion Gap 4 L BUN 13.3 Creatinine 0.9 Est GFR (CKD-EPI)AfAm 97.86 Est GFR (CKD-EPI)NonAf 84.43 Random Glucose 88 Calcium 8.1 L Phosphorus 3.8 Magnesium 2.3 Total Bilirubin 0.8 AST 15 ALT 16 Alkaline Phosphatase 50 Total Protein 6.6 Albumin 2.8 L PTH Intact Pending PTH Intact Intraop 0 m Pending Urine Blood 3+ H Urine Nitrite Negative Urine Bilirubin Negative Urine Urobilinogen 0.2 Ur Leukocyte Esterase Negative Urine WBC (Auto) 0 Urine RBC (Auto) 50-60 Urine Casts (Auto) 4 Urine Bacteria (Auto) 0.2 Urine Yeast (Auto) None seen 04/26/19 06:55 WBC 8.9 RBC 4.18 Hgb 11.2 L Hct 34.5 L Plt Count 189 Sodium Potassium Chloride Carbon Dioxide Anion Gap BUN Creatinine Est GFR (CKD-EPI)AfAm Est GFR (CKD-EPI)NonAf Random Glucose Calcium Phosphorus Magnesium Total Bilirubin AST ALT Alkaline Phosphatase Total Protein Albumin PTH Intact PTH Intact Intraop 0 m Urine Blood Urine Nitrite Urine Bilirubin Urine Urobilinogen Ur Leukocyte Esterase Urine WBC (Auto) Urine RBC (Auto) Urine Casts (Auto) Urine Bacteria (Auto) Urine Yeast (Auto) Microbiology 04/24/19 23:05 Urine - Urine Clean Catch Urine Culture - Final NO GROWTH OBTAINED Imaging 04/25/19: renal and bladder sono: bilateral renal mild to moderate hydronephrosis , significantly over distended urinary bladder without wall thickening. bilateral ureteral jets not visualized. 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 04/25/19: EKG: NSR, with PVCs, rate 65bpm, qtc 401ms Assessment/Plan 73 M no significant PMHx, presents with complicated UTI 2/2 BPH and acute urinary retention. Patient underwent renal/bladder sono which revealed ?bladder mass. Crain placed which drained 1700mL of urine. #Complicated UTI -c/w ceftriaxone (04/25) -Ucx (-) -c/w Flomax 0.4mg BID, crain -tylenol PRN for pain/fever -uro: Dr. Bonilla #BPH, r/o prostatic CA -c/w Flomax 0.4mg BID -c/w crain -per uro, will need cystoscopy, and possible circumcision. d/w uro, for TOV on Friday (04/28) if able to void, can d/c pt 04/29 and he will need to return on 05/04 for cysto, possible TURP -can be done as same-day procedure or may require re-admission if TURP done or if large bladder tumor found -hypotonic saline to prevent post-obstructive diuresis-induced vol depletion -uro: Dr. Bonilla #F/E/N 04/22 NS 75 cc/hr continue to follow lytes reg diet #PPX DVT: on lovenox #Dispo monitoring on med-surg TOV on Friday (04/28), if able to void, can d/c 04/29 per uro for return/re- admit on 05/04 post cysto, possible TURP on re-admission, will need pre-op labs, EKG, CXR
--- NOTE | 2019-04-26 15:46 | PN ---
Teaching Attending Note Name of Resident: Amie Clayton ATTENDING PHYSICIAN STATEMENT I saw and evaluated the patient. I reviewed the resident's note and discussed the case with the resident. I agree with the resident's findings and plan as documented. SUBJECTIVE: Patient has no complaints. OBJECTIVE: Vital Signs Period Temp Pulse Resp BP Sys/Finney Pulse Ox Last 24 Hr 99.1 F-99.3 F 60-67 18-19 123-144/68-80 99 HEART: S1S2, RRR LUNGS: Clear ABDOMEN: Soft, non-tender, non-distended, normal BS EXTREMITIES: No edema Laboratory Results - last 24 hr 04/26/19 04/26/19 06:55 06:55 WBC 8.9 RBC 4.18 Hgb 11.2 L Hct 34.5 L MCV 82.4 MCH 26.7 MCHC 32.3 RDW 14.2 Plt Count 189 MPV 9.6 Absolute Neuts (auto) 5.4 Neutrophils % 60.7 D Lymphocytes % 26.6 D Monocytes % 10.5 H Eosinophils % 1.6 D Basophils % 0.6 Nucleated RBC % 0 Sodium 139 Potassium 3.5 Chloride 107 Carbon Dioxide 29 Anion Gap 4 L BUN 13.3 Creatinine 0.9 Est GFR (CKD-EPI)AfAm 97.86 Est GFR (CKD-EPI)NonAf 84.43 Random Glucose 88 Calcium 8.1 L Phosphorus 3.8 Magnesium 2.3 Total Bilirubin 0.8 AST 15 ALT 16 Alkaline Phosphatase 50 Total Protein 6.6 Albumin 2.8 L Current Medications Generic Name Dose Route Start Last Admin Trade Name Freq PRN Reason Stop Dose Admin Acetaminophen 650 mg 04/25/19 05:45 04/25/19 06:03 Tylenol - PO 650 mg Q6H PRN Administration PAIN LEVEL 6-10 Enoxaparin Sodium 40 mg 04/25/19 19:30 04/26/19 10:58 Lovenox - SQ 40 mg DAILY [facility] Administration Ceftriaxone Sodium 1 gm/ 50 mls @ 100 mls/hr 04/25/19 04:15 04/26/19 11:36 Dextrose IVPB 100 mls/hr DAILY [facility] Administration Protocol Sodium Chloride 1,000 mls @ 75 mls/hr 04/26/19 12:57 1/2 Normal Saline IV ASDIR [facility] Polyethylene Glycol 17 gm 04/26/19 13:45 04/26/19 15:06 Miralax (For Daily Use) - PO 17 gm DAILY [facility] Administration Tamsulosin HCl 0.4 mg 04/25/19 20:30 04/26/19 10:58 Flomax - PO 0.4 mg Q12H [facility] Administration ASSESSMENT AND PLAN: This is a 73 year old man with no significant medical history who presented to the ED with frequent urination and difficulty voiding. 1. BPH with urinary retention and UTI - Continue ceftriaxone (day 2) - Maintain [place] - Continue Flomax - Plan for voiding trial on 04/28 - Will need eventual cystoscopy 2. Acute kidney injury secondary to obstructive uropathy - Improved 3. Hypernatremia - Resolved
[2019-04-27] MEDS: ACETAMINOPHEN 325 MG TABLET (FP) PO PRN ×2 (02:33→23:12)
[2019-04-27] MEDS: SODIUM CHLORIDE 0.45% 1,000 ML IV SCH ×2 (02:35→17:43)
[2019-04-27 08:07] LABS: BASO % 0.8 % (0-2.0); EOS % 2.4 % (0-4.5); HEMATOCRIT 33.6 % (35.4-49); LYMPH % 32.2 % (8-40); MCH 26.8 pg (25.7-33.7); MCHC 32.6 g/dl (32.0-35.9); MEAN PLT VOLUME 9.8 fl (7.5-11.1); NEUT % 52.6 % (42.8-82.8); PLATELET COUNT 183 K/MM3 (134-434); RDW 13.9 % (11.9-15.9)
[2019-04-27 08:21] LABS: ALBUMIN 2.6 g/dl (3.4-5.0); BILIRUBIN,TOTAL 0.4 mg/dL (0.2-1); BLOOD UREA NITROGEN 9.7 mg/dL (7-18); CALCIUM 7.9 mg/dL (8.5-10.1); CREATININE 0.8 mg/dL (0.55-1.3); POTASSIUM 3.7 mmol/L (3.5-5.1); TOT PROT 6.4 g/dl (6.4-8.2)
[2019-04-27] MEDS ORDERED: cefTRIAXone SODIUM 1 GM VIAL ONE (10:03)
[2019-04-27] MEDS ORDERED: DEXTROSE 5%-WATER - 50 ML IVPB ONE (10:03)
[2019-04-27] MEDS: TAMSULOSIN HCL 0.4 MG CAP PO SCH ×2 (10:07→21:35)
[2019-04-27] MEDS: CEFTRIAXONE 1 GM in DEXTROSE 5%-WATER - 50 ML IVPB SCH (10:07)
[2019-04-27] MEDS: ENOXAPARIN NA (PORCINE) 40 MG/0.4 ML DISP.SYRIN SQ SCH (10:10)
[2019-04-27] MEDS: POLYETHYLENE GLYCOL 3350 119 GM BTL PO SCH (10:11)
--- NOTE | 2019-04-27 15:47 | PN ---
Progress Note (short form) - Note Progress Note: Hospitalist Medicine Comfortable. Had suprapubic pain earlier, but resolved. Endorses BM yesterday. For TOV tomorrow per uro Vitals 04/27/19 15:38 Temperature 98.9 F Pulse Rate 67 Respiratory 18 Rate Blood Pressure 118/67 Physical Exam general: resting in bed, in NAD heent: NCAT, PERRLA neck: supple cardio: S1, S2 RRR. no r/m/g pulm: CTA B/l. no accessory m usage abdomen: nondistended. mild suprapubic tenderness. 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 bilateral ureteral jets not visualized. 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 04/25/19: EKG: NSR, with PVCs, rate 65bpm, qtc 401ms Assessment/Plan 73 M no significant PMHx, presents with complicated UTI 2/2 BPH and acute urinary retention. Patient underwent renal/bladder sono which revealed ?bladder mass. Crain placed which drained 1700mL of urine. #Complicated UTI -c/w ceftriaxone (04/25) -Ucx (-) -c/w Flomax 0.4mg BID, crain -tylenol PRN for pain/fever -uro: Dr. Bonilla #BPH, r/o prostatic CA -c/w Flomax 0.4mg BID -c/w crain -per uro, will need cystoscopy, and possible circumcision. d/w uro, for TOV tomorrow (04/28) if able to void, can d/c pt 04/29 and he will need to return on 05/04 for cysto, possible TURP -can be done as same-day procedure or may require re-admission if TURP done or if large bladder tumor found -hypotonic saline to prevent post-obstructive diuresis-induced vol depletion -uro: Dr. Bonilla #F/E/N 04/22 NS 75 cc/hr continue to follow lytes reg diet #PPX DVT: on lovenox #Dispo monitoring on med-surg TOV tomorrow (04/28), if able to void, can d/c 04/29 per uro for return/re-admit on 05/04 post cysto, possible TURP on re-admission, will need pre-op labs, EKG, CXR
--- NOTE | 2019-04-27 16:49 | PN ---
Progress Note, Physician History of Present Illness: Pt seen and examined at bedside. He is awake and alert. He denies shortness of breath. - Current Medication List Current Medications: Active Medications Acetaminophen (Tylenol -) 650 mg PO Q6H PRN PRN Reason: PAIN LEVEL 6-10 Last Admin: 04/27/19 02:33 Dose: 650 mg Enoxaparin Sodium (Lovenox -) 40 mg SQ DAILY [facility] Last Admin: 04/27/19 10:10 Dose: 40 mg Ceftriaxone Sodium 1 gm/ (Dextrose) 50 mls @ 100 mls/hr IVPB DAILY [facility]; Protocol Last Admin: 04/27/19 10:07 Dose: 100 mls/hr Sodium Chloride (1/2 Normal Saline) 1,000 mls @ 75 mls/hr IV ASDIR [facility] Last Admin: 04/27/19 02:35 Dose: 75 mls/hr Polyethylene Glycol (Miralax (For Daily Use) -) 17 gm PO DAILY [facility] Last Admin: 04/27/19 10:11 Dose: 17 gm Tamsulosin HCl (Flomax -) 0.4 mg PO Q12H [facility] Last Admin: 04/27/19 10:07 Dose: 0.4 mg - Objective Vital Signs: Vital Signs Temperature 98.9 F 04/27/19 15:38 Pulse Rate 67 04/27/19 15:38 Respiratory Rate 18 04/27/19 15:38 Blood Pressure 118/67 04/27/19 15:38 O2 Sat by Pulse Oximetry (%) 99 04/27/19 09:00 Constitutional: Yes: Calm Eyes: Yes: Conjunctiva Clear HENT: Yes: Atraumatic Neck: Yes: Supple Cardiovascular: Yes: S1, S2 Respiratory: Yes: CTA Bilaterally Gastrointestinal: Yes: Soft Genitourinary: Yes: [place] Present Musculoskeletal: Yes: WNL Edema: No Neurological: Yes: Oriented Psychiatric: Yes: Oriented Labs: CBC, BMP 04/27/19 07:15 04/27/19 07:15 INR, PTT INR 1.26 (0.83-1.09) H 04/25/19 08:00 Assessment/Plan Current Medications Generic Name Dose Route Start Last Admin Trade Name Freq PRN Reason Stop Dose Admin Acetaminophen 650 mg 04/25/19 05:45 04/27/19 02:33 Tylenol - PO 650 mg Q6H PRN Administration PAIN LEVEL 6-10 Enoxaparin Sodium 40 mg 04/25/19 19:30 04/27/19 10:10 Lovenox - SQ 40 mg DAILY [facility] Administration Ceftriaxone Sodium 1 gm/ 50 mls @ 100 mls/hr 04/25/19 04:15 04/27/19 10:07 Dextrose IVPB 100 mls/hr DAILY [facility] Administration Protocol Sodium Chloride 1,000 mls @ 75 mls/hr 04/26/19 12:57 04/27/19 02:35 1/2 Normal Saline IV 75 mls/hr ASDIR [facility] Administration Polyethylene Glycol 17 gm 04/26/19 13:45 04/27/19 10:11 Miralax (For Daily Use) - PO 17 gm DAILY [facility] Administration Tamsulosin HCl 0.4 mg 04/25/19 20:30 04/27/19 10:07 Flomax - PO 0.4 mg Q12H [facility] Administration 1. JAN secondary to bladder outlet obstruction 2. Hydronephrosis 3. Hypernatremia 4. Bladder mass 5. Recent UTI Plan - renal function is stable - decrease fluids further - repeat labs in am - urology eval
--- NOTE | 2019-04-27 17:43 | PN ---
Teaching Attending Note Name of Resident: Amie Clayton ATTENDING PHYSICIAN STATEMENT I saw and evaluated the patient. I reviewed the resident's note and discussed the case with the resident. I agree with the resident's findings and plan as documented. SUBJECTIVE: No complaints. OBJECTIVE: Vital Signs Period Temp Pulse Resp BP Sys/Finney Pulse Ox Last 24 Hr 98.9 F-99.0 F 59-67 18-18 118-148/59-78 97-99 HEART: S1S2, RRR LUNGS: Clear ABDOMEN: Soft, non-tender, non-distended, normal BS EXTREMITIES: No edema Laboratory Results - last 24 hr 04/25/19 04/27/19 04/27/19 08:00 07:15 07:15 WBC 7.0 RBC 4.10 Hgb 11.0 L Hct 33.6 L MCV 82.0 MCH 26.8 MCHC 32.6 RDW 13.9 Plt Count 183 MPV 9.8 Absolute Neuts (auto) 3.7 Neutrophils % 52.6 Lymphocytes % 32.2 D Monocytes % 12.0 H Eosinophils % 2.4 Basophils % 0.8 Nucleated RBC % 0 Sodium 139 Potassium 3.7 Chloride 106 Carbon Dioxide 28 Anion Gap 5 L BUN 9.7 Creatinine 0.8 Est GFR (CKD-EPI)AfAm 102.71 Est GFR (CKD-EPI)NonAf 88.62 Random Glucose 82 Calcium 8.9 7.9 L Total Bilirubin 0.4 AST 14 L ALT 17 Alkaline Phosphatase 45 Total Protein 6.4 Albumin 2.6 L PTH Intact 29 PTH Intact Intraop 0 m Current Medications Generic Name Dose Route Start Last Admin Trade Name Freq PRN Reason Stop Dose Admin Acetaminophen 650 mg 04/25/19 05:45 04/27/19 02:33 Tylenol - PO 650 mg Q6H PRN Administration PAIN LEVEL 6-10 Enoxaparin Sodium 40 mg 04/25/19 19:30 04/27/19 10:10 Lovenox - SQ 40 mg DAILY [facility] Administration Ceftriaxone Sodium 1 gm/ 50 mls @ 100 mls/hr 04/25/19 04:15 04/27/19 10:07 Dextrose IVPB 100 mls/hr DAILY [facility] Administration Protocol Sodium Chloride 1,000 mls @ 42 mls/hr 04/27/19 16:49 1/2 Normal Saline IV ASDIR [facility] Polyethylene Glycol 17 gm 04/26/19 13:45 04/27/19 10:11 Miralax (For Daily Use) - PO 17 gm DAILY [facility] Administration Tamsulosin HCl 0.4 mg 04/25/19 20:30 04/27/19 10:07 Flomax - PO 0.4 mg Q12H [facility] Administration ASSESSMENT AND PLAN: This is a 73 year old man with no significant medical history who presented to the ED with frequent urination and difficulty voiding. 1. BPH with urinary retention and UTI - Continue ceftriaxone (day 3) - Maintain [place] - Continue Flomax - Plan for voiding trial tomorrow - Will need eventual cystoscopy 2. Acute kidney injury secondary to obstructive uropathy - Improved 3. Hypernatremia - Resolved
[2019-04-28] MEDS: ACETAMINOPHEN 325 MG TABLET (FP) PO PRN ×2 (05:15→21:32)
[2019-04-28 08:47] LABS: BASO % 0.7 % (0-2.0); EOS % 3.8 % (0-4.5); HEMOGLOBIN 11.2 GM/dL (11.7-16.9); LYMPH % 24.6 % (8-40); MCH 26.4 pg (25.7-33.7); MCHC 32.1 g/dl (32.0-35.9); MEAN PLT VOLUME 9.8 fl (7.5-11.1); MONO % 12.6 % (3.8-10.2); NEUT % 58.3 % (42.8-82.8); PLATELET COUNT 198 K/MM3 (134-434); RBC 4.26 M/mm3 (4.00-5.60); WHITE BLOOD COUNT 6.3 K/mm3 (4.0-10.0)
[2019-04-28] MEDS: TAMSULOSIN HCL 0.4 MG CAP PO SCH ×2 (09:07→20:46)
[2019-04-28 09:32] LABS: BLOOD UREA NITROGEN 9.5 mg/dL (7-18); CREATININE 0.8 mg/dL (0.55-1.3); MAGNESIUM 2.1 mg/dL (1.8-2.4); POTASSIUM 3.7 mmol/L (3.5-5.1)
[2019-04-28] MEDS ORDERED: cefTRIAXone SODIUM 1 GM VIAL ONE (10:39)
[2019-04-28] MEDS ORDERED: DEXTROSE 5%-WATER - 50 ML IVPB ONE (10:40)
[2019-04-28] MEDS: ENOXAPARIN NA (PORCINE) 40 MG/0.4 ML DISP.SYRIN SQ SCH (10:43)
[2019-04-28] MEDS: CEFTRIAXONE 1 GM in DEXTROSE 5%-WATER - 50 ML IVPB SCH (10:44)
[2019-04-28] MEDS: POLYETHYLENE GLYCOL 3350 119 GM BTL PO SCH (10:45)
--- NOTE | 2019-04-28 12:54 | PN ---
Progress Note, Physician History of Present Illness: Pt seen and examined at bedside. He is awake and alert. Montgomery was removed and he is on a voiding trial. - Current Medication List Current Medications: Active Medications Acetaminophen (Tylenol -) 650 mg PO Q6H PRN PRN Reason: PAIN LEVEL 6-10 Last Admin: 04/28/19 05:15 Dose: 650 mg Enoxaparin Sodium (Lovenox -) 40 mg SQ DAILY [facility] Last Admin: 04/28/19 10:43 Dose: 40 mg Ceftriaxone Sodium 1 gm/ (Dextrose) 50 mls @ 100 mls/hr IVPB DAILY [facility]; Protocol Last Admin: 04/28/19 10:44 Dose: 100 mls/hr Sodium Chloride (1/2 Normal Saline) 1,000 mls @ 42 mls/hr IV ASDIR [facility] Last Admin: 04/27/19 17:43 Dose: 42 mls/hr Polyethylene Glycol (Miralax (For Daily Use) -) 17 gm PO DAILY [facility] Last Admin: 04/28/19 10:45 Dose: 17 gm Tamsulosin HCl (Flomax -) 0.4 mg PO Q12H [facility] Last Admin: 04/28/19 09:07 Dose: 0.4 mg - Objective Vital Signs: Vital Signs Temperature 98.9 F 04/28/19 06:58 Pulse Rate 66 04/28/19 06:58 Respiratory Rate 18 04/28/19 06:58 Blood Pressure 131/74 04/28/19 06:58 O2 Sat by Pulse Oximetry (%) 99 04/27/19 09:00 Constitutional: Yes: Calm Eyes: Yes: Conjunctiva Clear HENT: Yes: Atraumatic Cardiovascular: Yes: S1, S2 Respiratory: Yes: CTA Bilaterally Gastrointestinal: Yes: Soft Genitourinary: Yes: WNL Musculoskeletal: Yes: WNL Edema: No Neurological: Yes: Oriented Psychiatric: Yes: Oriented Labs: CBC, BMP 04/28/19 08:07 04/28/19 08:07 INR, PTT INR 1.26 (0.83-1.09) H 04/25/19 08:00 Assessment/Plan Current Medications Generic Name Dose Route Start Last Admin Trade Name Freq PRN Reason Stop Dose Admin Acetaminophen 650 mg 04/25/19 05:45 04/28/19 05:15 Tylenol - PO 650 mg Q6H PRN Administration PAIN LEVEL 6-10 Enoxaparin Sodium 40 mg 04/25/19 19:30 04/28/19 10:43 Lovenox - SQ 40 mg DAILY [facility] Administration Ceftriaxone Sodium 1 gm/ 50 mls @ 100 mls/hr 04/25/19 04:15 04/28/19 10:44 Dextrose IVPB 100 mls/hr DAILY [facility] Administration Protocol Sodium Chloride 1,000 mls @ 42 mls/hr 04/27/19 16:49 04/27/19 17:43 1/2 Normal Saline IV 42 mls/hr ASDIR [facility] Administration Polyethylene Glycol 17 gm 04/26/19 13:45 04/28/19 10:45 Miralax (For Daily Use) - PO 17 gm DAILY [facility] Administration Tamsulosin HCl 0.4 mg 04/25/19 20:30 04/28/19 09:07 Flomax - PO 0.4 mg Q12H [facility] Administration 1. JAN secondary to bladder outlet obstruction 2. Hydronephrosis 3. Hypernatremia 4. Bladder mass 5. Recent UTI Plan - renal function stable - pt on voiding trial - can stop fluids - urology eval
--- NOTE | 2019-04-28 14:23 | PN ---
Progress Note (short form) - Note Progress Note: Hospitalist Medicine C/o mild pressure in suprapubic region. Crain removed this AM for voiding trial , however was retaining 700cc. D/w urology, crain for re-insertion. Vitals 04/28/19 06:58 Temperature 98.9 F Pulse Rate 66 Respiratory 18 Rate Blood Pressure 131/74 Physical Exam general: resting in bed, in NAD heent: NCAT, PERRLA neck: supple cardio: S1, S2 RRR. no r/m/g pulm: CTA B/l. no accessory m usage abdomen: nondistended. mild suprapubic tenderness. LE: 2+ pulses, no edema neuro: poem writer 2-12 grossly intact +crain for re-insertion Laboratory Tests 04/28/19 04/28/19 04/28/19 08:07 08:07 08:07 WBC 6.3 Hgb 11.2 L Hct 35.0 L Plt Count 198 Sodium 139 Potassium 3.7 Chloride 106 Carbon Dioxide 28 Anion Gap 5 L BUN 9.5 Creatinine 0.8 Calcium 8.0 L Phosphorus 4.0 Magnesium 2.1 Prostate Specific Ag Pending Microbiology 04/24/19 23:05 Urine - Urine Clean Catch Urine Culture - Final NO GROWTH OBTAINED Imaging 04/25/19: renal and bladder sono: bilateral renal mild to moderate hydronephrosis , significantly over distended urinary bladder without wall thickening. bilateral ureteral jets not visualized. 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 04/25/19: EKG: NSR, with PVCs, rate 65bpm, qtc 401ms Assessment/Plan 73 M no significant PMHx, presents with complicated UTI 2/2 BPH and acute urinary retention. Patient underwent renal/bladder sono which revealed ?bladder mass. Crain placed which drained 1700mL of urine. #Complicated UTI -c/w ceftriaxone (04/25) -Ucx (-) -c/w Flomax 0.4mg BID, crain -tylenol PRN for pain/fever -uro: Dr. Bonilla #BPH, r/o prostatic CA -c/w Flomax 0.4mg BID -crain for re-insertion (04/28), failed void trial (700cc retained). d/w uro -per uro, will need cystoscopy, and possible circumcision. -scheduled on 05/04 for cysto, possible TURP -can be done as same-day procedure or may require re-admission if TURP done or if large bladder tumor found -IVF have been d/c -f/u PSA -uro: Dr. Bonilla #F/E/N off IVF continue to follow lytes reg diet #PPX DVT: on lovenox #Dispo monitoring on med-surg pending further uro recs
--- NOTE | 2019-04-28 14:56 | PN ---
Teaching Attending Note Name of Resident: Amie Clayton ATTENDING PHYSICIAN STATEMENT I saw and evaluated the patient. I reviewed the resident's note and discussed the case with the resident. I agree with the resident's findings and plan as documented. SUBJECTIVE: Patient unable to void after Montgomery removed, so it has been re- inserted. He complains of lower abdominal pain. OBJECTIVE: Vital Signs Period Temp Pulse Resp BP Sys/Finney Pulse Ox Last 24 Hr 98.9 F-99.5 F 60-69 18-20 109-145/64-85 HEART: S1S2, RRR LUNGS: Clear ABDOMEN: Soft, (+) suprapubic tenderness, non-distended, normal BS EXTREMITIES: No edema Laboratory Results - last 24 hr 04/28/19 04/28/19 08:07 08:07 WBC 6.3 RBC 4.26 Hgb 11.2 L Hct 35.0 L MCV 82.0 MCH 26.4 MCHC 32.1 RDW 14.0 Plt Count 198 MPV 9.8 Absolute Neuts (auto) 3.7 Neutrophils % 58.3 Lymphocytes % 24.6 D Monocytes % 12.6 H Eosinophils % 3.8 Basophils % 0.7 Nucleated RBC % 0 Sodium 139 Potassium 3.7 Chloride 106 Carbon Dioxide 28 Anion Gap 5 L BUN 9.5 Creatinine 0.8 Est GFR (CKD-EPI)AfAm 102.71 Est GFR (CKD-EPI)NonAf 88.62 Random Glucose 87 Calcium 8.0 L Phosphorus 4.0 Magnesium 2.1 Current Medications Generic Name Dose Route Start Last Admin Trade Name Freq PRN Reason Stop Dose Admin Acetaminophen 650 mg 04/25/19 05:45 04/28/19 05:15 Tylenol - PO 650 mg Q6H PRN Administration PAIN LEVEL 6-10 Enoxaparin Sodium 40 mg 04/25/19 19:30 04/28/19 10:43 Lovenox - SQ 40 mg DAILY [facility] Administration Ceftriaxone Sodium 1 gm/ 50 mls @ 100 mls/hr 04/25/19 04:15 04/28/19 10:44 Dextrose IVPB 100 mls/hr DAILY [facility] Administration Protocol Sodium Chloride 1,000 mls @ 42 mls/hr 04/27/19 16:49 04/27/19 17:43 1/2 Normal Saline IV 42 mls/hr ASDIR [facility] Administration Polyethylene Glycol 17 gm 04/26/19 13:45 04/28/19 10:45 Miralax (For Daily Use) - PO 17 gm DAILY [facility] Administration Tamsulosin HCl 0.4 mg 04/25/19 20:30 04/28/19 09:07 Flomax - PO 0.4 mg Q12H [facility] Administration ASSESSMENT AND PLAN: This is a 73 year old man with no significant medical history who presented to the ED with frequent urination and difficulty voiding. 1. BPH with urinary retention and UTI - Continue ceftriaxone (day 4) - Maintain Montgomery - Continue Flomax - Will need eventual cystoscopy 2. Acute kidney injury secondary to obstructive uropathy - Improved 3. Hypernatremia - Resolved
[2019-04-28] MEDS: SODIUM CHLORIDE 0.45% 1,000 ML IV SCH (17:51)
[2019-04-29] MEDS: ACETAMINOPHEN 325 MG TABLET (FP) PO PRN (04:04)
[2019-04-29 08:40] LABS: BASO % 0.5 % (0-2.0); EOS % 4.4 % (0-4.5); HEMATOCRIT 35.6 % (35.4-49); HEMOGLOBIN 11.5 GM/dL (11.7-16.9); LYMPH % 23.5 % (8-40); MCH 26.6 pg (25.7-33.7); MCHC 32.3 g/dl (32.0-35.9); MEAN CELL VOLUME 82.3 fl (80-96); NEUT % 59.6 % (42.8-82.8); PLATELET COUNT 204 K/MM3 (134-434); RBC 4.33 M/mm3 (4.00-5.60); RDW 13.8 % (11.9-15.9); WHITE BLOOD COUNT 7.5 K/mm3 (4.0-10.0)
[2019-04-29 09:06] LABS: BLOOD UREA NITROGEN 9.5 mg/dL (7-18); CALCIUM 8.2 mg/dL (8.5-10.1); CREATININE 0.8 mg/dL (0.55-1.3); MAGNESIUM 2.1 mg/dL (1.8-2.4); PHOSPHOROUS 4.2 mg/dL (2.5-4.9); POTASSIUM 3.8 mmol/L (3.5-5.1)
[2019-04-29] MEDS ORDERED: cefTRIAXone SODIUM 1 GM VIAL ONE (10:10)
[2019-04-29] MEDS ORDERED: DEXTROSE 5%-WATER - 50 ML IVPB ONE (10:11)
[2019-04-29] MEDS: CEFTRIAXONE 1 GM in DEXTROSE 5%-WATER - 50 ML IVPB SCH (10:18)
[2019-04-29] MEDS: TAMSULOSIN HCL 0.4 MG CAP PO SCH ×2 (10:19→21:37)
[2019-04-29] MEDS: POLYETHYLENE GLYCOL 3350 119 GM BTL PO SCH (10:19)
[2019-04-29] MEDS: ENOXAPARIN NA (PORCINE) 40 MG/0.4 ML DISP.SYRIN SQ SCH (10:19)
--- NOTE | 2019-04-29 14:23 | PN ---
Teaching Attending Note Name of Resident: Amie Clayton ATTENDING PHYSICIAN STATEMENT I saw and evaluated the patient. I reviewed the resident's note and discussed the case with the resident. I agree with the resident's findings and plan as documented. SUBJECTIVE: seen and examined at bedside, crain reinserted last night due to retention, failed voiding trial OBJECTIVE: Vital Signs - 24 hr 04/28/19 04/29/19 04/29/19 18:00 01:00 05:06 Temperature 99.2 F 98 F 98.5 F Pulse Rate 66 62 Respiratory 18 18 Rate Blood Pressure 129/80 145/66 04/29/19 09:00 Temperature 98.1 F Pulse Rate 69 Respiratory 18 Rate Blood Pressure 131/75 PE: NAD s1s2, rrr cta bl, no wrr soft, ntnd, nabs, +crain 2+ dpp no cce Current Medications Acetaminophen (Tylenol -) 650 mg PO Q6H PRN PRN Reason: PAIN LEVEL 6-10 Last Admin: 04/29/19 04:04 Dose: 650 mg Enoxaparin Sodium (Lovenox -) 40 mg SQ DAILY [facility] Last Admin: 04/29/19 10:19 Dose: 40 mg Ceftriaxone Sodium 1 gm/ (Dextrose) 50 mls @ 100 mls/hr IVPB DAILY [facility]; Protocol Last Admin: 04/29/19 10:18 Dose: 100 mls/hr Sodium Chloride (1/2 Normal Saline) 1,000 mls @ 42 mls/hr IV ASDIR [facility] Last Admin: 04/28/19 17:51 Dose: 42 mls/hr Polyethylene Glycol (Miralax (For Daily Use) -) 17 gm PO DAILY [facility] Last Admin: 04/29/19 10:19 Dose: 17 gm Tamsulosin HCl (Flomax -) 0.4 mg PO Q12H [facility] Last Admin: 04/29/19 10:19 Dose: 0.4 mg Laboratory Results - last 24 hr 04/28/19 04/29/19 04/29/19 08:07 07:35 07:35 WBC 7.5 RBC 4.33 Hgb 11.5 L Hct 35.6 MCV 82.3 MCH 26.6 MCHC 32.3 RDW 13.8 Plt Count 204 MPV 10.0 Absolute Neuts (auto) 4.5 Neutrophils % 59.6 Lymphocytes % 23.5 Monocytes % 12.0 H Eosinophils % 4.4 Basophils % 0.5 Nucleated RBC % 0 Sodium 140 Potassium 3.8 Chloride 106 Carbon Dioxide 29 Anion Gap 5 L BUN 9.5 Creatinine 0.8 Est GFR (CKD-EPI)AfAm 102.71 Est GFR (CKD-EPI)NonAf 88.62 Random Glucose 83 Calcium 8.2 L Phosphorus 4.2 Magnesium 2.1 Prostate Specific Ag 55.40 H ASSESSMENT AND PLAN: 73 year old man presented to the ED with frequent urination and difficulty voiding. 1. BPH with urinary retention and UTI -c/w rocephin, day 5 -maintain crain -plan for cystoscopy 05/04/19 -if fails voiding trial again, would dc with crain and followup with urology outpatient -await urology recs -cw flomax 2) Obstucive Uropathy, JAN -improved
--- NOTE | 2019-04-29 14:38 | PN ---
Progress Note (short form) - Note Progress Note: Hospitalist Medicine C/o mild suprapubic discomfort. Otherwise feeling well. +crain, to be seen by uro today Vitals 04/29/19 09:00 Temperature 98.1 F Pulse Rate 69 Respiratory 18 Rate Blood Pressure 131/75 Physical Exam general: resting in bed, in NAD heent: NCAT, PERRLA neck: supple cardio: S1, S2 RRR. no r/m/g pulm: CTA B/l. no accessory m usage abdomen: nondistended. mild suprapubic tenderness. LE: 2+ pulses, no edema neuro: global vp creative + content marketing 2-12 grossly intact +crain - clear, yellow. Laboratory Tests 04/28/19 04/29/19 04/29/19 08:07 07:35 07:35 WBC 7.5 Hgb 11.5 L Hct 35.6 Plt Count 204 Sodium 140 Potassium 3.8 Chloride 106 Carbon Dioxide 29 Anion Gap 5 L BUN 9.5 Random Glucose 83 Calcium 8.2 L Phosphorus 4.2 Magnesium 2.1 Prostate Specific Ag 55.40 H Microbiology 04/24/19 23:05 Urine - Urine Clean Catch Urine Culture - Final NO GROWTH OBTAINED Imaging 04/25/19: renal and bladder sono: bilateral renal mild to moderate hydronephrosis , significantly over distended urinary bladder without wall thickening. bilateral ureteral jets not visualized. 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 04/25/19: EKG: NSR, with PVCs, rate 65bpm, qtc 401ms Assessment/Plan 73 M no significant PMHx, presents with complicated UTI 2/2 BPH and acute urinary retention. Patient underwent renal/bladder sono which revealed ?bladder mass. Crain placed which drained 1700mL of urine. #Complicated UTI -c/w ceftriaxone (04/25) -Ucx (-) -c/w Flomax 0.4mg BID, crain -tylenol PRN for pain/fever -uro: Dr. Bonilla, will await further recs #BPH, r/o prostatic CA -c/w Flomax 0.4mg BID -crain re-inserted (04/28), may be able to d/c home w/ crain. pending uro recs -per uro, will need cystoscopy, and possible circumcision. -scheduled on 05/04 for cysto, possible TURP -can be done as same-day procedure or may require re-admission if TURP done or if large bladder tumor found -elevated PSA -uro: Dr. Bonilla #F/E/N off IVF continue to follow lytes reg diet #PPX DVT: on lovenox #Dispo monitoring on med-surg pending further uro recs
--- NOTE | 2019-04-29 14:40 | PN ---
Progress Note, Physician History of Present Illness: Pt seen and examined at bedside. He did not tolerate the voiding trial yesterday. - Current Medication List Current Medications: Active Medications Acetaminophen (Tylenol -) 650 mg PO Q6H PRN PRN Reason: PAIN LEVEL 6-10 Last Admin: 04/29/19 04:04 Dose: 650 mg Enoxaparin Sodium (Lovenox -) 40 mg SQ DAILY [facility] Last Admin: 04/29/19 10:19 Dose: 40 mg Ceftriaxone Sodium 1 gm/ (Dextrose) 50 mls @ 100 mls/hr IVPB DAILY [facility]; Protocol Last Admin: 04/29/19 10:18 Dose: 100 mls/hr Sodium Chloride (1/2 Normal Saline) 1,000 mls @ 42 mls/hr IV ASDIR [facility] Last Admin: 04/28/19 17:51 Dose: 42 mls/hr Polyethylene Glycol (Miralax (For Daily Use) -) 17 gm PO DAILY [facility] Last Admin: 04/29/19 10:19 Dose: 17 gm Tamsulosin HCl (Flomax -) 0.4 mg PO Q12H [facility] Last Admin: 04/29/19 10:19 Dose: 0.4 mg - Objective Vital Signs: Vital Signs Temperature 98.1 F 04/29/19 09:00 Pulse Rate 69 04/29/19 09:00 Respiratory Rate 18 04/29/19 09:00 Blood Pressure 131/75 04/29/19 09:00 O2 Sat by Pulse Oximetry (%) 97 04/28/19 09:00 Constitutional: Yes: Calm Eyes: Yes: Conjunctiva Clear HENT: Yes: Atraumatic Neck: Yes: Supple Cardiovascular: Yes: S1, S2 Respiratory: Yes: CTA Bilaterally Gastrointestinal: Yes: Soft Genitourinary: Yes: Crain Present Extremities: Yes: WNL Edema: No Neurological: Yes: Oriented Psychiatric: Yes: Oriented Labs: CBC, BMP 04/29/19 07:35 04/29/19 07:35 INR, PTT INR 1.26 (0.83-1.09) H 04/25/19 08:00 Assessment/Plan Current Medications Generic Name Dose Route Start Last Admin Trade Name Freq PRN Reason Stop Dose Admin Acetaminophen 650 mg 04/25/19 05:45 04/29/19 04:04 Tylenol - PO 650 mg Q6H PRN Administration PAIN LEVEL 6-10 Enoxaparin Sodium 40 mg 04/25/19 19:30 04/29/19 10:19 Lovenox - SQ 40 mg DAILY [facility] Administration Ceftriaxone Sodium 1 gm/ 50 mls @ 100 mls/hr 04/25/19 04:15 04/29/19 10:18 Dextrose IVPB 100 mls/hr DAILY [facility] Administration Protocol Sodium Chloride 1,000 mls @ 42 mls/hr 04/27/19 16:49 04/28/19 17:51 1/2 Normal Saline IV 42 mls/hr ASDIR [facility] Administration Polyethylene Glycol 17 gm 04/26/19 13:45 04/29/19 10:19 Miralax (For Daily Use) - PO 17 gm DAILY [facility] Administration Tamsulosin HCl 0.4 mg 04/25/19 20:30 04/29/19 10:19 Flomax - PO 0.4 mg Q12H [facility] Administration 1. JAN secondary to bladder outlet obstruction 2. Hydronephrosis 3. Hypernatremia 4. Bladder mass 5. Recent UTI Plan - crain replaced - can d/c fluids - repeat labs in am - urology follow up pending
--- NOTE | 2019-04-29 19:13 | PN ---
Progress Note (short form) - Note Progress Note: Events noted As patient was unable to empty bladder and crain had to be reinserted, will be brought to OR for following procedures cystoscopy, TURP to address the retention Possbile TURbladder Tumor as a mass was suspected on admission ultrasound Circumcision b/o tight phimosis further complicating voiding and management. I explained all of above to the patient using an interpretor. We discussed the possibility of his going home and coming in Friday morning but he did not want to do that and he may have problems dealing with catheter at home Would send new bloods Friday morning and must be NPO after midnight Friday for OR Friday at 730 Markedly elevated PSA noted though cannot be sure how much of elevation is related to his being instrumented and recent infection , both of which will cause a rise in PSA. His exam does suggest strong possibility of prostate cancer , prostate being very firm nodular and irregularly enlarged. No need to have separate biopsy as we should get more than enough tissue at time of TURP. I
[2019-04-30] MEDS: ACETAMINOPHEN 325 MG TABLET (FP) PO PRN (01:58)
[2019-04-30] MEDS ORDERED: cefTRIAXone SODIUM 1 GM VIAL ONE (09:01)
[2019-04-30] MEDS ORDERED: DEXTROSE 5%-WATER - 50 ML IVPB ONE (09:02)
[2019-04-30] MEDS: CEFTRIAXONE 1 GM in DEXTROSE 5%-WATER - 50 ML IVPB SCH (09:05)
[2019-04-30] MEDS: POLYETHYLENE GLYCOL 3350 119 GM BTL PO SCH (09:05)
[2019-04-30] MEDS: ENOXAPARIN NA (PORCINE) 40 MG/0.4 ML DISP.SYRIN SQ SCH (09:05)
[2019-04-30] MEDS: TAMSULOSIN HCL 0.4 MG CAP PO SCH (09:05)
[2019-04-30 09:47] LABS: BLOOD UREA NITROGEN 11.1 mg/dL (7-18); CALCIUM 8.6 mg/dL (8.5-10.1); CREATININE 0.8 mg/dL (0.55-1.3); POTASSIUM 3.6 mmol/L (3.5-5.1)
--- NOTE | 2019-04-30 13:48 | PN ---
Progress Note, Physician History of Present Illness: Pt seen and examined at bedside. He still has the crain. He denies shortness of breath. - Current Medication List Current Medications: Active Medications Acetaminophen (Tylenol -) 650 mg PO Q6H PRN PRN Reason: PAIN LEVEL 6-10 Last Admin: 04/30/19 01:58 Dose: 650 mg Enoxaparin Sodium (Lovenox -) 40 mg SQ DAILY [facility] Last Admin: 04/30/19 09:05 Dose: 40 mg Ceftriaxone Sodium 1 gm/ (Dextrose) 50 mls @ 100 mls/hr IVPB DAILY [facility]; Protocol Last Admin: 04/30/19 09:05 Dose: 100 mls/hr Polyethylene Glycol (Miralax (For Daily Use) -) 17 gm PO DAILY [facility] Last Admin: 04/30/19 09:05 Dose: 17 gm Tamsulosin HCl (Flomax -) 0.4 mg PO Q12H [facility] Last Admin: 04/30/19 09:05 Dose: 0.4 mg - Objective Vital Signs: Vital Signs Temperature 98 F 04/30/19 09:06 Pulse Rate 64 04/30/19 09:06 Respiratory Rate 18 04/30/19 09:06 Blood Pressure 126/82 04/30/19 09:06 O2 Sat by Pulse Oximetry (%) 96 04/30/19 09:00 Constitutional: Yes: Calm Eyes: Yes: Conjunctiva Clear HENT: Yes: Atraumatic Neck: Yes: Supple Cardiovascular: Yes: S1, S2 Respiratory: Yes: CTA Bilaterally Gastrointestinal: Yes: Soft Genitourinary: Yes: Crain Present Musculoskeletal: Yes: WNL Edema: No Neurological: Yes: Oriented Psychiatric: Yes: Oriented Labs: CBC, BMP 04/29/19 07:35 04/30/19 07:30 INR, PTT INR 1.26 (0.83-1.09) H 04/25/19 08:00 Assessment/Plan Current Medications Generic Name Dose Route Start Last Admin Trade Name Freq PRN Reason Stop Dose Admin Acetaminophen 650 mg 04/25/19 05:45 04/30/19 01:58 Tylenol - PO 650 mg Q6H PRN Administration PAIN LEVEL 6-10 Enoxaparin Sodium 40 mg 04/25/19 19:30 04/30/19 09:05 Lovenox - SQ 40 mg DAILY [facility] Administration Ceftriaxone Sodium 1 gm/ 50 mls @ 100 mls/hr 04/25/19 04:15 04/30/19 09:05 Dextrose IVPB 100 mls/hr DAILY [facility] Administration Protocol Polyethylene Glycol 17 gm 04/26/19 13:45 04/30/19 09:05 Miralax (For Daily Use) - PO 17 gm DAILY [facility] Administration Tamsulosin HCl 0.4 mg 04/25/19 20:30 04/30/19 09:05 Flomax - PO 0.4 mg Q12H [facility] Administration 1. JAN secondary to bladder outlet obstruction 2. Hydronephrosis 3. Hypernatremia 4. Bladder mass 5. Recent UTI Plan - urology input appreciated, possible OR Friday - renal function stable - maintain crain for now - stable off of fluids - will follow PRN
--- NOTE | 2019-04-30 14:30 | PN ---
Teaching Attending Note Name of Resident: Amie Clayton ATTENDING PHYSICIAN STATEMENT I saw and evaluated the patient. I reviewed the resident's note and discussed the case with the resident. I agree with the resident's findings and plan as documented. SUBJECTIVE:Patient was admitted to the hospital for urinary retention Montgomery was put in and he is on antibiotic he is ready for TURP specimen on Friday 4 days from today. OBJECTIVE:GENERAL: Well developed, well nourished. Awake and alert. No acute distress. HEENT: Normocephalic, atraumatic. PERRLA, EOMI. No conjunctival pallor. Sclera are non- icteric. Moist mucous membranes. Oropharynx is clear. NECK: Supple. Full ROM. No JVD. Carotid pulses 2+ and symmetric, without bruits. No thyromegaly. No lymphadenopathy. CARDIOVASCULAR: Regular rate and rhythm. No murmurs, rubs, or gallops. Distal pulses are 2+ and symmetric. PULMONARY: No evidence of respiratory distress. Lungs clear to auscultation bilaterally. No wheezing, rales or rhonchi. ABDOMINAL: Soft. Non-tender. Non-distended. No rebound or guarding. No organomegaly. Normoactive bowel sounds. MUSCULOSKELETAL Normal range of motion at all joints. No bony deformities or tenderness. No CVA tenderness. EXTREMITIES: No cyanosis. No clubbing. No edema. No calf tenderness. SKIN: Warm and dry. Normal capillary refill. No rashes. No jaundice. NEUROLOGICAL: Alert, awake, appropriate. Cranial nerves 2-12 intact. No deficits to light touch and temperature in face, upper extremities and lower extremities. No motor deficits in the in face, upper extremities and lower extremities. Normoreflexic in the upper and lower extremities. Normal speech. Toes are down- going bilaterally. Gait is normal without ataxia. PSYCHIATRIC: Cooperative. Good eye contact. Appropriate mood and affect. ASSESSMENT AND PLAN: Patient be discharged home on oral antibiotics. He is going to come back on Friday 6 AM admission has been notified discussed with urologist in detail he will go to the admissions office 6:00 in the morning he will be admitted to the [facility] from there he has surgery 7:30 in the morning
[2019-04-30 15:53] VITALS: TEMP 98.8
--- NOTE | 2019-04-30 16:02 | DS ---
Physical Exam: SUBJECTIVE: Patient seen and examined at bedside. Georgian translation used. Agreeable to d/c, with VNS for crain care. To return at 6AM on Friday for TURP d/w patient. Included in dc instructions. Plan d/w uro OBJECTIVE: Vital Signs Period Temp Pulse Resp BP Sys/Finney Pulse Ox Last 24 Hr 98 F-99.1 F 63-72 18-18 121-130/70-82 96-97 Physical Exam general: resting in bed, in NAD heent: NCAT, PERRLA neck: supple cardio: S1, S2 RRR. no r/m/g pulm: CTA B/l. no accessory m usage abdomen: nondistended. mild suprapubic tenderness. LE: 2+ pulses, no edema neuro: lot associate 2-12 grossly intact +crain - clear, yellow. LABS Laboratory Results - last 24 hr 04/30/19 07:30 Sodium 138 Potassium 3.6 Chloride 104 Carbon Dioxide 27 Anion Gap 7 L BUN 11.1 Creatinine 0.8 Est GFR (CKD-EPI)AfAm 102.71 Est GFR (CKD-EPI)NonAf 88.62 Random Glucose 104 Calcium 8.6 04/24/19 04/25/19 04/26/19 22:40 08:00 06:55 WBC 11.4 H 11.1 H 8.9 Hgb 11.9 11.8 11.2 L Hct 37.3 36.9 34.5 L Plt Count 205 203 189 04/27/19 04/28/19 04/29/19 07:15 08:07 07:35 WBC 7.0 6.3 7.5 Hgb 11.0 L 11.2 L 11.5 L Hct 33.6 L 35.0 L 35.6 Plt Count 183 198 204 04/25/19 08:00 PT with INR 14.90 H INR 1.26 H PTT (Actin FS) 29.7 04/25/19 04/25/19 04/26/19 08:00 08:00 06:55 Sodium 139 Potassium 3.5 Anion Gap 4 L BUN 13.3 Creatinine 0.9 Hemoglobin A1c % 5.6 Calcium 8.1 L AST 15 ALT 16 Albumin 2.8 L Prostate Specific Ag PTH Intact 29 04/27/19 04/28/19 04/28/19 07:15 08:07 08:07 Sodium 139 139 Potassium 3.7 3.7 Anion Gap 5 L 5 L BUN 9.7 9.5 Creatinine 0.8 0.8 Hemoglobin A1c % Calcium 7.9 L 8.0 L AST 14 L ALT 17 Albumin 2.6 L Prostate Specific Ag 55.40 H PTH Intact 04/29/19 04/30/19 07:35 07:30 Sodium 140 138 Potassium 3.8 3.6 Anion Gap 5 L 7 L BUN 9.5 11.1 Creatinine 0.8 0.8 Hemoglobin A1c % Calcium 8.2 L 8.6 AST ALT Albumin Prostate Specific Ag PTH Intact 04/24/19 23:05 Urine Blood 3+ H Urine Nitrite Negative Urine Bilirubin Negative Urine Urobilinogen 0.2 Ur Leukocyte Esterase Negative Urine WBC (Auto) 0 Urine RBC (Auto) 50-60 Urine Casts (Auto) 4 U Epithel Cells (Auto) 0.6 Urine Bacteria (Auto) 0.2 Microbiology 04/24/19 23:05 Urine - Urine Clean Catch Urine Culture - Final NO GROWTH OBTAINED Imaging 04/25/19: renal and bladder sono: bilateral renal mild to moderate hydronephrosis , significantly over distended urinary bladder without wall thickening. bilateral ureteral jets not visualized. 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 04/25/19: EKG: NSR, with PVCs, rate 65bpm, qtc 401ms HOSPITAL COURSE: Date of Admission:04/25/19 Date of Discharge: 04/30/19 73 M no significant PMHx, presents with complicated UTI 2/2 BPH and acute urinary retention. Patient underwent renal/bladder sono which revealed ?bladder mass. Crain placed which drained 1700mL of urine. #Complicated UTI -was tx with ceftriaxone (04/25) - 04/30. d/c home on keflex until procedure on 05/04 (TURP) -Ucx (-) -c/w crain, VNS care -d/c home on finasteride per uro -tylenol PRN for pain/fever -uro: Dr. Boinlla #BPH, r/o prostatic CA -c/w finasteried -crain re-inserted (04/28) d/t failed TOV -scheduled on 05/04 for cysto, possible TURP. pt to report to admissions at 6AM, NPO after MN. d/w pt -can be done as same-day procedure or may require re-admission if TURP done or if large bladder tumor found -elevated PSA -uro: Dr. Bonilla Minutes to complete discharge: 55 <Amie Clayton - Last Filed: 04/30/19 16:02> Physical Exam: SUBJECTIVE: Patient seen and examined OBJECTIVE: Vital Signs Period Temp Pulse Resp BP Sys/Finney Pulse Ox Last 24 Hr 98 F-99.1 F 63-72 18-18 121-130/70-82 96-97 PHYSICAL EXAM GENERAL: The patient is awake, alert, and fully oriented, in no acute distress. HEAD: Normal with no signs of trauma. EYES: PERRL, extraocular movements intact, sclera anicteric, conjunctiva clear. ENT: Ears normal, nares patent, oropharynx clear without exudates, moist mucous membranes. NECK: Trachea midline, full range of motion, supple. LUNGS: Breath sounds equal, clear to auscultation bilaterally, no wheezes, no crackles, no accessory muscle use. HEART: Regular rate and rhythm, S1, S2 without murmur, rub or gallop. ABDOMEN: Soft, nontender, nondistended, normoactive bowel sounds, no guarding, no rebound, no hepatosplenomegaly, no masses. EXTREMITIES: 2+ pulses, warm, well-perfused, no edema. NEUROLOGICAL: Cranial nerves II through XII grossly intact. Normal speech, gait not observed. PSYCH: Normal mood, normal affect. SKIN: Warm, dry, normal turgor, no rashes or lesions noted. LABS Laboratory Results - last 24 hr 04/30/19 07:30 Sodium 138 Potassium 3.6 Chloride 104 Carbon Dioxide 27 Anion Gap 7 L BUN 11.1 Creatinine 0.8 Est GFR (CKD-EPI)AfAm 102.71 Est GFR (CKD-EPI)NonAf 88.62 Random Glucose 104 Calcium 8.6 HOSPITAL COURSE: Date of Admission:04/25/19 Date of Discharge: 04/30/19 Seen and examined. Please see resident note for further historical information. I personally verified all the ugalde historical formation and exam findings. Personally in pretted imaging and diagnostics and reviewed appropriate results. I reviewed all labs and vital signs are per the resident note and EMR as documented. I agree with the above assessment and plan unless supplemented by myself and the following. <Mi Szymanski - Last Filed: 04/30/19 17:50> Discharge Summary Problems reviewed: Yes Reason For Visit: REETENTION OF URINE Current Active Problems BPH (benign prostatic hyperplasia) (Acute) Urinary retention (Acute) - Home Medications Comprehensive Discharge Medication List: Ambulatory Orders Acetaminophen [Tylenol .Regular Strength -] 650 mg PO Q6H PRN #15 tablet Cephalexin [Keflex] 500 mg PO BID #10 capsule 04/30/19 Finasteride 5 mg PO DAILY #7 tablet 04/30/19 Polyethylene Glycol 3350 [Miralax 119 gm Btl -] 17 gm PO DAILY #1 bottle <Amie Clayton - Last Filed: 04/30/19 16:02> Current Active Problems BPH (benign prostatic hyperplasia) (Acute) Urinary retention (Acute) - Home Medications Comprehensive Discharge Medication List: Ambulatory Orders Acetaminophen [Tylenol .Regular Strength -] 650 mg PO Q6H PRN #15 tablet Cephalexin [Keflex] 500 mg PO BID #10 capsule 04/30/19 Finasteride 5 mg PO DAILY #7 tablet 04/30/19 Polyethylene Glycol 3350 [Miralax 119 gm Btl -] 17 gm PO DAILY #1 bottle <Mi Szymanski - Last Filed: 04/30/19 17:50> Condition: Improved - Instructions Diet, Activity, Other Instructions: You were in the hospital because you had urinary retention and possible prostate mass. You are being discharged home with a crain catheter (tube to help you urinate). You will have VNS (visiting nurse services) at home to help you manage the crain as we discussed. Medications You must take the following medications at home: 1. Finasteride 5 mg (1 pill) daily, starting today - for your prostate 2. Keflex (antibiotic) - 500mg twice a day, starting tomorrow (Monday 05/01 ) for the next 4 days 3. You can take tylenol 650mg (1 pill) every 6 hours as needed for pain. 4. Miralax 17 grams daily as needed for constipation PROCEDURE- VERY IMPORTANT! -You will need a cystoscopy and TURP surgical procedure with your urologist It is THIS April. You must report at 6:00 AM (in the morning) to Admissions on the first floor of [facility] (this [facility] ) for the procedure. Dr. Ya will be doing your procedure (urologist). This is very, very important Care Since you are having a surgical procedure on Friday, you are not allowed to have any food or drinks from Friday night onward (the night before starting at 11PM) Visiting nurse services will help you with the care for your crain catheter. It must remain in while you are home, since you were unable to urinate without it. Follow up You must come to the hospital at 6AM On Friday MORNING to Registration on the 1st floor to have your procedure with Dr. Ya. During this visit, you will also see Dr. Odell, the kidney doctor Later on you will follow with the primary care doctor: [facility] Bartholomew [facility] Debe micky los siguientes medicamentos en casa: 1. Finasteride 5 mg diario, a partir de hoy - para tu prstata 2. Keflex (antibiotic) - 500mg dos veces al da, a partir de maana (sbado 05/01 ) shreyas los prximos 4 hoffman 3. tylenol 650mg (oskar pastilla) cada 6 horas segn sea necesario para el dolor. 4. Miralax 17 gramos diariamente segn sea necesario para el estreimiento importante por favor pilar Usted necesitar un procedimiento quirrgico de cistoscopia y TURP con cast urlogo Es BEAN STEFANIA, 14 DE 2019. Debe presentarse a las 6:00 a.m. (en la maana) a las admisiones en el primer piso de [facility] ([facility] [place]) para el procedimiento. [facility] se someter a un procedimiento quirrgico el stefania, no se le permite comer ni beber a partir del lunes por la noche (la noche antes de comenzar a las 11 p.m.) Referrals: Vince Bonilla MD [Staff Physician] - 05/04/19 6:00 am Delon May MD [Staff Physician] - 1 Week Luis Antonio Odell MD [Staff Physician] - 05/04/19 Disposition: VNS/HOME HEALTH CARE This patient is new to me today: No Emergency Visit: No Critical Care patient: No - Discharge Referral [facility]erred to [facility] No <Amie Clayton - Last Filed: 04/30/19 16:02> ATTENDING PHYSICIAN STATEMENT I saw and evaluated the patient. I reviewed the resident's note and discussed the case with the resident. I agree with the resident's findings and plan as documented. SUBJECTIVE: OBJECTIVE: ASSESSMENT AND PLAN: <Mi Szymanski - Last Filed: 04/30/19 17:50>
[2019-04-30 18:09] VITALS: BP 130/78; PULSE 69
== END 2019-04-30 18:08 | disposition home health service (06) | DRG 699 ==
LOC: JER 21:26 → JERBED 04-25 01:11 → J5S 04-25 05:12
PROVIDERS: ATTEND Internal Medicine
DX: N13.9 Obstructive and reflux uropathy, unspecified (principal); N17.9 Acute kidney failure, unspecified; E87.0 Hyperosmolality and hypernatremia; N13.30 Unspecified hydronephrosis; N39.0 Urinary tract infection, site not specified; N40.0 Benign prostatic hyperplasia without lower urinary tract symptoms; R33.9 Retention of urine, unspecified; N32.0 Bladder-neck obstruction
CPT/HCPCS: 36415; 76775-TC; 76856-TC; 80048; 80053; 81003; 82310; 82550; 83036; 83735; 83970; 84100; 84153; 85025; 85027; 85610; 85730; 86850; 86900; 86901; 87086; 90670; 93005; 93010; 99283-25; G0008; G0009; Q2036